=== PATIENT | female | born 1985 | race Caucasian/White ===

== ENCOUNTER 2025-05-02 20:20 | Emergency (ER) | payer OTHER, SELFPAY ==
--- OUTSIDE RECORDS SUMMARY | 2013-07-28 08:00 | XMS_ITS | Continuity of Care Document ---
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 Please verify the information with the lin of the legal document before using it for clinical purposes. Encounters Encounter Description Practice Location Reason(s) For Visit Diagnoses Date Provider Providers Copied on Encounter [facility], [address] [facility], [place], [address], [place] tel:[phone] [facility] [place] David Ricardo. [address] [place], [place], [id number], [place]. tel:[phone] Referring Provider: Davion Reagan, [address] [place], [address]. tel:[phone] Family History Family Member Type Diagnosis Age At Onset No Information Payers Payer name Insurance type Covered libertarian ID Authoriza tion(s) [employer] [id number] Social History Type Description Quantity Date Captured Comments Alcohol Use Details No Caffeine Use Details Tobacco Use Status No Information Smoking Status Never smoker Sex Female Chief Complaint And Reason For Visit No Information Reason For Referral Reason For Referral No Information History Of Present Illness Encounter Date Complaint History Of Prese nt Illness No Information Functional Status Date Functional Assessmen t No Information Instructions Date Instruction Additional Infor trevor - Return in [address] Hernandez for a routine exam. Related to Myopia Myopia OU - - Refrac tive error. Glasses prescription given today. Instructions and use reviewed. Educational materials provided: Related to Myopia Assessments Type Assessment Date No Information Patient Care Teams Name Effective Dates (start - stop) Status Members No Information
--- NOTE | ~2025-05-02 | CT_ITS ---
CT abdomen pelvis w con Clinical History: r/o pyelonephritis . Comparison: Pyelonephritis Technique: Axial images lung bases to symphysis pubis 100 mL Coronal, sagittal reformats CT images acquired with automatic exposure control for dose reduction DLP: 255 mGy-cm Findings: Lung bases: Clear. Visualized heart and pericardium: Unremarkable. Liver: Enlarged. Gallbladder: Unremarkable. Spleen: Unremarkable. Pancreas: Unremarkable. Adrenal glands: Unremarkable. Kidneys: Right kidney- No hydronephrosis. No renal stones. Tiny probable cyst. Left kidney- No hydronephrosis. 2 mm stone. Distal esophagus/stomach: Unremarkable. Small bowel loops: Normal caliber and wall thickness. Colon: Normal caliber and wall thickness. Appendix not seen. Nodes: No enlarged nodes. Peritoneum: No ascites. No free air. Urinary bladder: Unremarkable. Uterus: Unremarkable. Adnexa: No masses or. Bones: No acute bony abnormality. Soft tissues: Unremarkable. Aorta: No aneurysm or dissection. IVC: Unremarkable. Main portal vein/SMV/splenic vein: Patent. IMPRESSION: 1. No acute findings. Reviewed, dictated and finalized at location R. IMPRESSION: 1. No acute findings.
[2025-05-02 20:24] VITALS: BP 152/99; PULSE 84; RESP 20; TEMP 36.6; O2SAT 100
[2025-05-02 22:31] LABS: Hematocrit 34.8 % (37.0-47.0); Hemoglobin 11.2 g/dL (12.0-15.0); Immature Granulocyte Percent A 0.3 % (0-0.5); Lymphocytes Absolute Auto 2.55 K/mm3 (0.9-3.2); Mean Corpuscular HGB Conc 32.2 g/dl (32-36); Mean Corpuscular Hemoglobin 31.2 pg (26-34); Mean Corpuscular Volume 96.9 fl (80-100); Nucleated Red Blood Cells Absolute Auto 0.000 K/mm3 (0.0-0.012); Nucleated Red Blood Cells Perc 0.0 % (0.0-0.2); Platelet Count Result 310 k/mm3 (150-375); Red Blood Count 3.59 M/mm3 (4.2-5.4); White Blood Count 7.8 K/mm3 (4.5-10.0)
[2025-05-02 22:34] LABS: Add Urine Microscopic? NO; Appearance Urine Clear (Clear); Glucose Urine UA Negative (Negative); Leukocyte Esterase Ur Negative LEU/UL (Negative); Nitrate Urine Negative (Negative); Specific Grav Ur 1.032 (1.001-1.035)
[2025-05-02 22:50] LABS: Alanine Aminotransferase 18 U/L (6-35); Albumin Level 4.0 g/dL (3.5-5.1); Alkaline Phosphatase 51 U/L (38-126); Anion Gap 10 mmol/L (4-12); Aspartate Amino Transferase 21 U/L (14-36); Bilirubin,Total < 0.1 mg/dL (0.2-1.3); Blood Urea Nitrogen 14 mg/dL (7-17); Calcium 8.4 mg/dL (8.4-10.2); Carbon Dioxide 21 mmol/L (22-30); Chloride 107 mmol/L (98-107); Estimated CRCL calculation 85 ml/min; Estimated Glomerular Filt Rate > 60; Glucose 94 mg/dL (65-110); Lipase 225 U/L (23-300); Potassium 3.4 mmol/L (3.4-5.0); Sodium 138 mmol/L (137-145); Total Protein 6.5 g/dL (6.3-8.2)
--- NOTE | 2025-05-03 00:06 | PC.NURSE ---
ed [facility] a/p with con r/o pyelonephritis
--- NOTE | 2025-05-03 00:15 | PC.NURSE ---
alejandro in lab to add on test
[2025-05-03 00:24] LABS: Pregnancy On Board Control Positive
[2025-05-03 00:49] VITALS: PULSE 79; RESP 17; O2SAT 100
--- OUTSIDE RECORDS SUMMARY | 2025-05-03 00:59 | XMS_ITS | Encounter Summary ---
Author Organization [facility] Address [address] [place] [address] Phone Care Team Providers Care Drag Sawyer Name Role Phone Rona San APRN, CNP Primary Care Provider + Samuel Larry MD Primary Care Provider [phone] Encounter Details Date Type Department Care Team (Late st Contact Info) Description 11/20/2023 Telephone 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 Rona can be reached at [phone]. documented in this encounter Plan of Treatment Not on file documented as of this encounter Visit Diagnoses Not on filedocumented in this encounter Care Teams Drag Sawyer Relationship Specialty Start Date End Date Rona San, EXTRUDER, BASTING MARKER [address] [place] [address] PCP - General Certified Nurse Practitioner 08/28/22 06/02/24 Samuel Larry MD [address] [place] [address] PCP - General Internal Medicine 06/03/24 documented as of this encounter
--- OUTSIDE RECORDS SUMMARY | 2025-05-03 00:59 | XMS_ITS | Encounter Summary ---
Author Organization [facility] Address [address] [place] [address] Phone Care Team Providers Care Cytotechnologist/Histotechnologist Name Role Phone Samuel Larry MD Primary Care Provider Reason for Visit * Reason Comments Refill Request Encounter Details Date Type Department Care Team ([facility] Contact Info) Description 07/04/2024 Refill [facility] [address] [place] [address] Samuel Larry MD [address] [place] [address] Refill Request Social History Tobacco Use Types Packs/Day Years Used Date Smoking Tobacco: Never Smokeless Tobacco: Never Alcohol Use Standard Drinks/Week Comments Not Currently 0 (1 standard drink = 0.6 oz pur e alcohol) Comments No Sex and Gender Information Value Date Recorded Sex Assigned at Not on file Legal Sex Female 9:20 AM LASERIST Gender Identity Not on file Sexual Orientation Not on file documented as of this encounter Miscellaneous Notes * Telephone Encounter - Rody Jacobo RN - 07/07/2024 5:10 PM CST Patient last seen 05/27/2024. Patient next appt not scheduled at this time. Last filled 06-20-2024 for a 14 day supply. Was started on 05-30-24. Pain contract signed no. RIST * Telephone Encounter - Matilde Mendoza RN - 07/04/2024 12:10 PM CST REQUEST- Medication request for pending med(s) does not meet protocol. Reason: tramadol Medication is non-delegated Reason: cyclobenzaprine Not on medication for 91 days consecutively Routing to office for review. Please note: Per policy [facility] staff does not check for prescriptions/refills at pharmacy. All applicable manual reviews have been completed. Requested Prescriptions Pending Prescriptions Disp Refills traMADoL (ULTRAM) 50 mg tablet [Pharmacy Med Name: TRAMADOL HCL 50 MG TABLET] 56 tablet 0 Sig: TAKE 2 TABLETS BY MOUTH 2 TIMES DAILY FOR 14 DAYS Non-Delegated - Analgesics: Opioid Agonists Failed - 07/04/2024 12:10 PM Failed - This refill cannot be delegated cyclobenzaprine 5 mg tablet [Pharmacy Med Name: CYCLOBENZAPRINE 5 MG TABLET] 30 tablet 0 Sig: TAKE 1 TABLET BY MOUTH 3 TIMES DAILY NEEDED FOR MUSCLES SPASMS Analgesics: Muscle Relaxants Passed - 07/04/2024 12:10 PM Passed - Valid encounter within last 6 months Recent Visits Date Type Provider Dept 05/27/24 Office Visit Samuel Larry MD [facility] Internal Medicine [facility] Showing recent visits within past 730 days and meeting all other requirements Future Appointments No visits were found meeting these conditions. Showing future appointments within next 180 days and meeting all other requirements Associated protocol - MRC/A RIST * Telephone Encounter - User, Otogamifinch - 07/04/2024 10:56 AM CST No care due was identified. [employer] Embedded Care Due Messages. Reference number: [id number]. 07/04/2024 10:56:22 AM LASERIST RIST documented in this encounter Plan of Treatment Upcoming Encounters Date Type Department Care Team (Late st Contact Info) Description 05/06/2025 1:20 PM CDT Procedure Visit [facility] Interventional Pain [facility] [address] [place] [address] Graeme Masters DO [address] [place] [address] documented as of this encounter Visit Diagnoses Diagnosis Acute midline thoracic back pain documented in this encounter Additional Health Concerns Assessment Noted Time A Hypertension Plan of Care has been documented for the patient 05/27/2024 2:39 PM CDT documented as of this encounter Care Teams Cytotechnologist/Histotechnologist Relationship Specialty Start Date End Date Samuel Larry MD [address] [place] [address] PCP - General Adult Medicine 05/27/24 documented as of this encounter
--- OUTSIDE RECORDS SUMMARY | 2025-05-03 00:59 | XMS_ITS | Encounter Summary ---
Author Organization [facility] Address [address] [place] [address] Phone Care Team Providers Care Take Away Man Name Role Phone Samuel Larry MD Primary Care Provider [phone] Encounter Details Date Type Department Care Team ([facility] st Contact Info) Description 03/26/2025 Results Follow-Up [facility] [address] [place] [address] Samuel Larry MD [address] [place] [address] Social History Tobacco Use Types Packs/Day Years Used Date Smoking Tobacco: Never Smokeless Tobacco: Never Alcohol Use Standard Drinks/Week Comments Not Currently 0 (1 standard drink = 0.6 oz pur e alcohol) Comments No Sex and Gender Information Value Date Recorded Sex Assigned at Not on file 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 * Telephone Encounter - Shawanda Alcantar RN - 03/26/2025 4:22 PM CDT ----- Message from Samuel Larry MD sent at 03/26/2025 3:55 PM CDT ----- Looks like infection Start bactrim DS BID X 3 days Will f/u culture results ----- Message ----- From: [id number] Interface User Sent: 03/26/2025 1:53 PM CDT To: Samuel Larry MD documented in this encounter Plan of Treatment Upcoming Encounters Date Type Department Care Team (Late st Contact Info) Description 05/06/2025 1:20 PM CDT Procedure Visit [facility] [address] [place] [address] Graeme Masters DO [address] [place] [address] documented as of this encounter Visit Diagnoses Diagnosis UTI symptoms- Primary documented in this encounter Additional Health Concerns Assessment Noted Time A Hypertension Plan of Care has been documented for the patient 10/30/2024 1:39 PM CDT documented as of this encounter Care Teams Take Away Man Relationship Specialty Start Date End Date Samuel Larry MD [address] [place] [address] PCP - General Adult Medicine 05/27/24 documented as of this encounter
--- OUTSIDE RECORDS SUMMARY | 2025-05-03 00:59 | XMS_ITS | Encounter Summary ---
Author Organization [facility] Address [address] [place] [address] Phone Care Team Providers Care Drier Tender Naphthalene Name Role Phone Rona San APRN, CNP Primary Care Provider + Samuel Larry MD Primary Care Provider [phone] Encounter Details Date Type Department Care Team (Late st Contact Info) Description 09/05/2022 Telephone [facility] - Orthopaedics and Sports Medicine - [place] [address] [place] [address] Sara Faulkner PAC [address] [place] [address] Social History Tobacco Use Types Packs/Day Years Used Date Smoking Tobacco: Never Smokeless Tobacco: Never Alcohol Use Standard Drinks/Week Comments Never 0 (1 standard drink = 0.6 oz pur e alcohol) Comments Unknown Sex and Gender Information Value Date Recorded Sex Assigned at Female 11/08/2023 7:51 AM CDT Legal Sex 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 No / Unsure 08/28/2022 8:23 AM LINER MACHINE OPERATOR HELPER documented as of this encounter Miscellaneous Notes * Telephone Encounter - Zaida Maciel Salbador - 09/05/2022 10:08 AM CST Patient left a vm that she would like a call back from Sara. She saw her last week and has some questions about her upcoming procedure. Her number is [phone]. TC returned to pt, she stated that she really wanted to talk with Sara BAUMAN about surgery. Pt stated she wanted to know how long she would be off work and if she would be in a cast after surgery. Informed her I would send message to Sara BAUMAN and then return call. Pt stated that she would like Sara to return call. Informed her that Sara BAUMAN is busy in surgery but I would send a message. Pt voiced understanding. Lb rn R MACHINE OPERATOR HELPER R MACHINE OPERATOR HELPER documented in this encounter Plan of Treatment Not on file documented as of this encounter Visit Diagnoses Not on filedocumented in this encounter Care Teams Drier Tender Naphthalene Relationship Specialty Start Date End Date Rona San, BENY, RELIGION DEPARTMENT CHAIR [address] [place] [address] PCP - General Certified Nurse Practitioner 08/28/22 06/02/24 Samuel Larry MD [address] [place] [address] PCP - General Internal Medicine 06/03/24 documented as of this encounter
--- OUTSIDE RECORDS SUMMARY | 2025-05-03 00:59 | XMS_ITS | Encounter Summary ---
Author Organization [facility] Address [address] [place] [address] Phone Care Team Providers Care Underground Electrician Name Role Phone Samuel Larry MD Primary Care Provider [phone] Reason for Visit * Reason Onset Date Comments Refill Request 08/18/2024 Encounter Details Date Type Department Care Team (Late st Contact Info) Description 08/18/2024 Refill [facility] Adult [facility] [address] [place] [address] Samuel Larry MD [address] [place] [address] Refill Request Social History Tobacco Use Types Packs/Day Years Used Date Smoking Tobacco: Never Smokeless Tobacco: Never Alcohol Use Standard Drinks/Week Comments Not Currently 0 (1 standard drink = 0.6 oz pur e alcohol) Comments No Sex and Gender Information Value Date Recorded Sex Assigned at Not on file Legal 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 Larry approval R PRINTER OPERATOR * Telephone Encounter - Debbie Wade RN - 08/19/2024 1:18 PM COLOR PRINTER OPERATOR REQUEST- Medication request for pending med(s) does not meet protocol. Reason: Medication is non-delegated ultram-no rx noted on pdmp Routing to office for review. Please note: Per policy [facility] staff does not check for prescriptions/refills at pharmacy. All applicable manual reviews have been completed. Requested Prescriptions Pending Prescriptions Disp Refills traMADoL (ULTRAM) 50 mg tablet 28 tablet 0 Sig: Take 1-2 tablets (50-100 mg total) by mouth 2 (two) times daily as needed for pain Non-Delegated - Analgesics: Opioid Agonists Failed - 08/19/2024 1:18 PM Failed - This refill cannot be delegated cyclobenzaprine 5 mg tablet 30 tablet 0 Sig: Take 1 tablet (5 mg total) by mouth 3 (three) times daily as needed (muscle spasm) Analgesics: Muscle Relaxants Passed - 08/19/2024 1:18 PM Passed - Valid encounter within last 6 months Recent Visits Date Type Provider Dept 05/27/24 Office Visit Samuel Larry MD [facility] Internal Medicine [facility] Showing recent visits within past 730 days and meeting all other requirements Future Appointments No visits were found meeting these conditions. Showing future appointments within next 180 days and meeting all other requirements Associated protocol - MRC/A R PRINTER OPERATOR * Telephone Encounter - Roseann LiquidCompassankit - 08/18/2024 7:43 AM CST No care due was identified. [employer] Embedded Care Due Messages. Reference number: [id number]. 08/18/2024 7:43:07 AM COLOR PRINTER OPERATOR R PRINTER OPERATOR documented in this encounter Plan of Treatment Upcoming Encounters Date Type Department Care Team (Late st Contact Info) Description 05/06/2025 1:20 PM CDT Procedure Visit [facility] Interventional Pain [facility] [address] [place] [address] Graeme Masters DO [address] [place] [address] documented as of this encounter Visit Diagnoses Diagnosis Degeneration of intervertebral disc of lumbar region with discogenic back pain Acute midline thoracic back pain documented in this encounter Additional Health Concerns Assessment Noted Time A Hypertension Plan of Care has been documented for the patient 05/27/2024 2:39 PM CDT documented as of this encounter Care Teams Underground Electrician Relationship Specialty Start Date End Date Samuel Larry MD [address] [place] [address] PCP - General Adult Medicine 05/27/24 documented as of this encounter
--- OUTSIDE RECORDS SUMMARY | 2025-05-03 00:59 | XMS_ITS | Encounter Summary ---
Author Organization [facility] Address [address] [place] [address] Phone Care Team Providers Care Propellant Charge Loader Name Role Phone Samuel Larry MD Primary Care Provider [phone] Encounter Details Date Type Department Care Team (Late Contact Info) Description 03/28/2022 Orders Only [facility] [address] [place] [phone] [facility] [address] [place] [phone] Routine general medical examination at a health care facility; Hypothyroidism, unspecified type; Family history of diabetes mellitus; Other fatigue Social History Tobacco Use Types Packs/Day Years Used Date Smoking Tobacco: Never Smokeless Tobacco: Never Alcohol Use Standard Drinks/Week Comments Not Currently 0 (1 standard drink = 0.6 oz pur e alcohol) Comments No Sex and Gender Information Value Date Recorded Sex Assigned at Not on file Legal Sex Female 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 Gender Identity Not on file Sexual Orientation Not on file documented as of this encounter Plan of Treatment Upcoming Encounters Date Type Department Care Team (Late Contact Info) Description 05/06/2025 1:20 PM CDT Procedure Visit [facility] [address] [place] [address] Graeme Masters, DO [address] [place] [address] documented as of this encounter Procedures Procedure Name Priority Date/Time Associated Diagnosis Comments GLYCO HB A1C Routine 03/28/2022 12:55 AM CDT Routine general medical examination at a health care facility Hypothyroidism, unspecified type Family history of diabetes mellitus Other fatigue VITAMIN D, 25-HYDROXY Routine 03/28/2022 12:55 AM CDT CBC W/DIFF Routine 03/28/2022 12:55 AM CDT Routine general medical examination at a health care facility Hypothyroidism, unspecified type Family history of diabetes mellitus Other fatigue LIPID PANEL Routine 03/28/2022 12:55 AM CDT Routine general medical examination at a health care facility Hypothyroidism, unspecified type Family history of diabetes mellitus Other fatigue COMPREHENSIVE METABOLIC PANEL Routine 03/28/2022 12:55 AM CDT Routine general medical examination at a health care facility Hypothyroidism, unspecified type Family history of diabetes mellitus Other fatigue T4, FREE Routine 03/28/2022 12:55 AM CDT Routine general medical examination at a health care facility Hypothyroidism, unspecified type Family history of diabetes mellitus Other fatigue T3, TOTAL Routine 03/28/2022 12:55 AM CDT TSH Routine 03/28/2022 12:55 AM CDT Routine general medical examination at a health care facility Hypothyroidism, unspecified type Family history of diabetes mellitus Other fatigue VITAMIN B12 Routine 03/28/2022 12:55 AM CDT Routine general medical examination at a health care facility Hypothyroidism, unspecified type Family history of diabetes mellitus Other fatigue documented in this encounter Results * T3, TOTAL (03/28/2022 12:55 AM CDT) Pathologist [facility] T3, TOTAL 112.8 35.0 - 193.0 ng/dL [facility] Comment:[facility] Laboratory, [address] [place] [address] 03/28/2022 12:5 5 AM CDT 03/28/2022 8:10 PM CDT Rona San APRN HEM/CHEM/IMMUN-BLOOD Final Re sult Performing Organization Address [facility]/ZIP Co de Phone Number [facility] [address] [place] [address], * VITAMIN D, 25-HYDROXY (03/28/2022 12:55 AM CDT) [facility] VITAMIN D, 25-HYDROXY, TOTAL 68.7 30.0 - 100.0 ng/mL [facility] Comment:[facility], [address] [place] [address] 03/28/2022 12:5 5 AM CDT 03/28/2022 8:10 PM CDT Rona San APRN HEM/CHEM/IMMUN-BLOOD Final Re sult Performing Organization Address City/[facility]/ZIP Co de Phone Number [facility] [address] [place] [address], [place] * CBC W/DIFF (03/28/2022 12:55 AM CDT) [facility] WBC 9.01 4.00 - 11.00 10^3/uL [facility] RBC 4.62 3.50 - 5.20 10^6/uL [facility] HGB 13.8 11.0 - 16.0 g/dL [facility] HCT 41.4 34.0 - 47.0 % [facility] MCV 89.6 80.0 - 100.0 fL [facility] MCH 29.9 26.0 - 33.0 pg [facility] MCHC 33.3 31.0 - 35.0 g/dL [facility] RDW 13.1 12.0 - 15.0 % [facility] RDW-SD 43.1 38.0 - 52.0 fL [facility] PLATELET 350 140 - 400 10^3/uL [facility] MPV 10.2 9.0 - 12.0 fL [facility] # NRBC 0.00 0.00 - 0.00 10^3/uL [facility] % NRBC 0.00 0.0 - 0.0 /100 WBC [facility] SEG 59.6 % [facility] LYMPHOCYTE 30.5 % [facility] MONOCYTE 7.7 % [facility] EOSINOPHIL 1.1 % [facility] BASOPHIL 0.2 % [facility] IMMATURE GRANULOCYTE 0.9 % [facility] ABSOLUTE NEUTR 5.37 1.60 - 7.70 10^3/uL [facility] ABSOLUTE LYMPH 2.75 1.00 - 4.90 10^3/uL [facility] ABSOLUTE MONO 0.69 0.00 - 1.10 10^3/uL [facility] ABSOLUTE EOS 0.10 0.00 - 0.50 10^3/uL [facility] ABSOLUTE BASO 0.02 0.00 - 0.20 10^3/uL [facility] ABSOLUTE IMMATURE GRANULOCYTE 0.08 0.00 - 0.09 10^3/uL [facility] 03/28/2022 12:5 5 AM CDT 03/28/2022 12:55 AM CDT us Rona San APRN HEM/CHEM/IMMUN-BLOOD Final Re sult [facility] [address] [place] [address], * COMPREHENSIVE METABOLIC PANEL (03/28/2022 12:55 AM CDT) CALCIUM 9.8 8.2 - 10.2 mg/dL [facility] GLUCOSE 95 70 - 100 mg/dL [facility] BUN 15 7 - 20 mg/dL [facility] CREATININE 0.80 0.60 - 1.40 mg/dL [facility] TOTAL PROTEIN 8.2 6.4 - 8.2 g/dL [facility] ALBUMIN 4.2 3.4 - 5.0 g/dL [facility] BILIRUBIN, TOTAL 0.2 0.1 - 1.0 mg/dL [facility] AST 33 0 - 37 U/L [facility] ALT 39 16 - 61 U/L [facility] ALKALINE PHOSPHATASE 64 46 - 116 U/L [facility] SODIUM 137 135 - 148 mmol/L [facility] POTASSIUM 4.2 3.5 - 5.3 mmol/L [facility] CHLORIDE 101 95 - 108 mmol/L [facility] CO2 29.0 22.0 - 32.0 mmol/L [facility] GFR:NON- >60 arbitrary unit [facility] GFR: >60 arbitrary unit [facility] Comment: GFR is an estimate using the MDRD equation. The eGFR is intended only for assessment of chronic kidney disease in patients between ages of 18 and 69. The normal value is >60. 03/28/2022 12:5 5 AM CDT 03/28/2022 12:55 AM CDT Rona San APRN HEM/CHEM/IMMUN-BLOOD Final Re sult [facility] [address] [place] [address], * (ABNORMAL) LIPID PANEL (03/28/2022 12:55 AM CDT) CHOLESTEROL, TOTAL 221(H) 100 - 200 mg/dL [facility] TRIGLYCERIDES 362(H) 15 - 200 mg/dL [facility] HDL CHOLESTEROL 70 45 - 75 mg/dL [facility] LDL CHOLESTEROL 79 78 - 130 mg/dL [facility] 03/28/2022 12:5 5 AM CDT 03/28/2022 12:55 AM CDT Rona San APRN HEM/CHEM/IMMUN-BLOOD Final Re sult Performing Organization Address [facility] Co de Phone Number [facility] [address] [place] [address], * TSH (03/28/2022 12:55 AM CDT) Pathologist [facility] TSH 1.740 0.360 - 3.740 uIU/mL [facility] Comment: Specimens containing biotin at concentrations of 500 ng/ml demonstrate a less than or equal to 10% change in results. Biotin concentrations greater than this may lead to falsely elevated results for patient samples. Results from patients taking biotin supplements should be interpreted with caution. 03/28/2022 12:5 5 AM CDT 03/28/2022 12:55 AM CDT Rona San APRN HEM/CHEM/IMMUN-BLOOD Final Re sult Performing Organization Address [facility] Co de Phone Number [facility] [address] [place] [address], * T4, FREE (03/28/2022 12:55 AM CDT) [facility] T4, FREE 0.79 0.76 - 1.46 ng/dL [facility] Comment: Specimens containing biotin at concentrations of 500 ng/ml demonstrate a less than or equal to 10% change in results. Biotin concentrations greater than this may lead to falsely elevated results for patient samples. Results from patients taking biotin supplements should be interpreted with caution. 03/28/2022 12:5 5 AM CDT 03/28/2022 12:55 AM CDT Rona San APRN HEM/CHEM/IMMUN-BLOOD Final Re sult Performing Organization Address [facility] Co de Phone Number [facility] [address] [place] [address], [place] * GLYCO HB A1C (03/28/2022 12:55 AM CDT) [facility] GLYCO HB A1C 4.8 0.0 - 6.0 % [facility] ESTIMATED AVERAGE GLUCOSE 91 [facility] Comment: The relationship between A1c and eAG is described by the formula (28.7 x A1c)-46.7 = eAG. Recommended eAG: <150 mg/dL 03/28/2022 12:5 5 AM CDT 03/28/2022 12:55 AM CDT Rona San APRN HEM/CHEM/IMMUN-BLOOD Final Re sult Performing Organization Address [facility] de Phone Number [facility] [address] [place] [address], * VITAMIN B12 (03/28/2022 12:55 AM CDT) VITAMIN B12 345 200 - 1100 pg/mL [facility] Comment: Specimens containing biotin at concentrations of 500 ng/ml demonstrate a less than or equal to 10% change in results. Biotin concentrations greater than this may lead to falsely elevated results for patient samples. Results from patients taking biotin supplements should be interpreted with caution. 03/28/2022 12:5 5 AM CDT 03/28/2022 12:55 AM CDT oRna San APRN HEM/CHEM/IMMUN-BLOOD Final Re sult Performing Organization Address [facility] Phone Number [facility] [address] [place] [address], documented in this encounter Visit Diagnoses Diagnosis Routine general medical examination at a health care facility Hypothyroidism, unspecified type Family history of diabetes mellitus Other fatigue documented in this encounter Additional Health Concerns Infection Onset Date Last Indicated Resolved Time Suspected COVID-19 09/01/2023 09/01/2023 6:17 AM SUPERVISOR URANIUM PROCESSING Influenza 09/01/2023 09/01/2023 09/08/2023 10:0 3 PM SUPERVISOR URANIUM PROCESSING documented as of this encounter Care Teams Propellant Charge Loader Relationship Specialty Start Date End Date Samuel Larry MD [address] [place] [address] PCP - General Adult Medicine 05/27/24 documented as of this encounter
--- OUTSIDE RECORDS SUMMARY | 2025-05-03 00:59 | XMS_ITS | Encounter Summary ---
Author Organization [facility] Address [address] [place] [address] Phone Care Team Providers Care Acid Retort Operator Name Role Phone Samuel Larry MD Primary Care Provider [phone] Reason for Visit * Reason Onset Date Comments Refill Request 06/05/2024 Encounter Details Date Type Department Care Team (Late st Contact Info) Description 06/05/2024 Refill [facility] [place] [address] [place] [address] Samuel Larry MD [address] [place] [address] Refill Request Social History Tobacco Use Types Packs/Day Years Used Date Smoking Tobacco: Never Smokeless Tobacco: Never Alcohol Use Standard Drinks/Week Comments Not Currently 0 (1 standard drink = 0.6 oz pur e alcohol) Comments No Sex and Gender Information Value Date Recorded Sex Assigned at Not on file 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 Patient next appt not scheduled at this time. Last filled 05-30-2024 for a 7 day supply. Patient Comment: I went to the ER yesterday and they said they could not help me that I had to do outpatient with my doctor. Dr. Masters???s office does not offer medication Maintenance I???ve done nothing but lay and cry. I want to know what I???m supposed to do until I get these other injections. This isn???t fair * Telephone Encounter - Abby Cardenas CMA - 06/05/2024 10:07 AM CDT Images from the original note were not included. REQUEST- Medication request for pending med(s) does not meet protocol. Reason: Medication is non-delegated Routing to office for review. Please note: Per policy [facility] staff does not check for prescriptions/refills at pharmacy. All applicable manual reviews have been completed. Requested Prescriptions Pending Prescriptions Disp Refills traMADoL (ULTRAM) 50 mg tablet 14 tablet 0 Sig: Take 1 tablet (50 mg total) by mouth 2 (two) times daily for 7 days Non-Delegated - Analgesics: Opioid Agonists Failed - 06/05/2024 10:07 AM Failed - This refill cannot be delegated Associated protocol - [facility]/A * Telephone Encounter - Drea Whitfield - 06/05/2024 7:54 AM CDT No care due was identified. [facility] Embedded Care Due Messages. Reference number: [id number]. 06/05/2024 7:54:53 AM CDT documented in this encounter Plan of Treatment Upcoming Encounters Date Type Department Care Team (Late st Contact Info) Description 05/06/2025 1:20 PM CDT Procedure Visit [facility] [address] [place] [address] Graeme Masters, [address] [place] [address] documented as of this encounter Visit Diagnoses Diagnosis Acute midline thoracic back pain documented in this encounter Additional Health Concerns Assessment Noted Time A Hypertension Plan of Care has been documented for the patient 05/27/2024 2:39 PM CDT documented as of this encounter Care Teams Acid Retort Operator Relationship Specialty Start Date End Date Samuel Larry MD [address] [place] [address] PCP - General Adult Medicine 05/27/24 documented as of this encounter
--- OUTSIDE RECORDS SUMMARY | 2025-05-03 00:59 | XMS_ITS | Encounter Summary ---
Author Organization [facility] Address [address] [place] [address] Care Team Providers Care Telescope Operator Name Role Phone Rona San NP Primary Care Provider [phone] Reason for Visit * Inpt Precert (Routine) Specialty Diagnoses / Procedures Referred By Baldomero t Referred To Contact Referral ID Status Reason Start Date Expiration Date Visits Re quested Visits Authorized [id number] 1 1 Encounter Details Date Type Department Care Team (Late st Contact Info) Description 02/01/2023 Hospital Encounter [facility] [address] [place] [address] David Lala MD [address] [facility] [address] [place] [address] Social History Tobacco Use Types Packs/Day Years Used Date Smoking Tobacco: Never Smokeless Tobacco: Never Alcohol Use Standard Drinks/Week Comments No 0 (1 standard drink = 0.6 oz pur e alcohol) PHQ-2 Answer Date Recorded PHQ-2 Score 0 03/01/2023 Housing Stability Vital Sign Answer Yury e Recorded In the last 12 months, was t here a time when you were not able to pay the mortgage or rent on time? No 03/01/2023 In the last 12 months, how many places have you lived? 1 03/01/2023 In the last 12 months, was t here a time when you did not have a steady place to sleep or slept in a prison (including now)? No 03/01/2023 Alcohol Use Answer Date Recorded Frequency of Alcohol Consumption Not on file 01/29/2024 Average Number of Drinks Not on file 024 Frequency of Binge Drinking Not on file 01/18 Alcohol Use Status No 01/29/2024 Average alcohol consumption Not on file 01/18 Comments No Sex and Gender Information Value Date Recorded Sex Assigned at Female 02/01/2023 2:59 PM CDT Legal Sex Female 11:26 PM CDT Gender Identity Female 02/01/2023 2:59 PM CDT Sexual Orientation Straight 02/01/2023 2: 59 PM CDT COVID-19 Exposure Response Date Recorded In the last 10 days, have yo u been in contact with someone who was confirmed or suspected to have Coronavirus/COVID-19? No / Unsure 03/31/2023 10:31 AM CDT documented as of this encounter Functional Status * Are you deaf or do you have serious difficulty hearing? Answer Date of Assessment Author No 02/22/2023 1:43 PM CDT Ilya Reza RN * Are you blind or do you have serious difficulty seeing, even when wearing glasses? Answer Date of Assessment Author No 02/22/2023 1:43 PM CDT Ilya Reza RN * Do you have difficulty dressing or bathing? Answer Date of Assessment Author No 02/22/2023 1:43 PM DEEPAT Ilya Reza RN * Because of a physical, mental, or emotional condition, do you have difficulty doing errands alone such as visiting a doctor's office or shopping? Answer Date of Assessment Author No 02/22/2023 1:43 PM CDT Ilya Reza RN documented as of this encounter Mental Status * Because of a physical, mental, or emotional condition, do you have serious difficulty concentrating, remembering, or making decisions? Answer Entry Date Author No 02/22/2023 1:43 PM DEEPAT Ilya Reza RN documented in this encounter Plan of Treatment Not on file documented as of this encounter Goals Goal Patient Goal Type Associated Problems Recent Progress Patient-Stated? Author Reminders Care Plan OB Reminders No Mychartbguser documented as of this encounter Visit Diagnoses Not on filedocumented in this encounter Additional Health Concerns Active Problems Noted Date Diagnosed Date OB Reminders 02/02/2023 documented as of this encounter Care Teams Telescope Operator Relationship Specialty Start Date End Date Rona San NP [address] [place] [address] PCP - General Nurse Practitioner 09/05/22 01/14/25 documented as of this encounter
--- OUTSIDE RECORDS SUMMARY | 2025-05-03 00:59 | XMS_ITS | Encounter Summary ---
Author Organization [facility] Address [address] [place] [address] Phone Care Team Providers Care Scrap Metal Processing Worker Name Role Phone Samuel Larry MD Primary Care Provider [phone] Reason for Visit * Reason Onset Date Comments Refill Request 05/29/2024 Encounter Details Date Type Department Care Team (Late st Contact Info) Description 05/29/2024 Refill [facility] [address] [place] [address] Samuel Larry MD [address] [place] [address] Refill Request Social History Tobacco Use Types Packs/Day Years Used Date Smoking Tobacco: Never Smokeless Tobacco: Never Alcohol Use Standard Drinks/Week Comments Not Currently 0 (1 standard drink = 0.6 oz pur e alcohol) Comments No Sex and Gender Information Value Date Recorded Sex Assigned at Not on file 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 [employer] Embedded Care Due Messages. Reference number: [id number]. 05/29/2024 5:09:17 PM CDT documented in this encounter Plan of Treatment Upcoming Encounters Date Type Department Care Team (Late st Contact Info) Description 05/06/2025 1:20 PM CDT Procedure Visit [facility] Interventional [facility] [address] [place] [address] Graeme Masters DO [address] [place] [address] documented as of this encounter Visit Diagnoses Diagnosis Acute midline thoracic back pain- Primary documented in this encounter Additional Health Concerns Assessment Noted Time A Hypertension Plan of Care has been documented for the patient 05/27/2024 2:39 PM CDT documented as of this encounter Care Teams Scrap Metal Processing Worker Relationship Specialty Start Date End Date Samuel Larry MD [address] [place] [address] PCP - General Adult Medicine 05/27/24 documented as of this encounter
--- OUTSIDE RECORDS SUMMARY | 2025-05-03 00:59 | XMS_ITS | Clinical Summary ---
Author Organization [address] Address [address] [place] [address] [facility] [place] [address] Phone Care Team Providers Care Logistics Planning Manager Name Role Phone Samuel Larry MD Primary Care Provider [phone] Allergies No known active allergies Medications ALPRAZolam (XANAX) 0.5 MG Tablet Take by mouth nightly as needed. 2 Active omeprazole (PriLOSEC) 40 MG CAPSULE DELAYED RELEASE Take 20 mg by mouth as needed. 1 Active dicyclomine (BENTYL) 20 MG Tablet Take 10 mg by mouth as needed. 2 Active acetaminophen (Tylenol 8 Hour) 650 MG Tablet Controlled Release Take 1 Tablet by mouth every 6 hours as needed for Moderate or more severe pain. 40 Tablet 4 Active SUMAtriptan (IMITREX) 50 MG Tablet TAKE 1 TABLET BY MOUTH AT ONSET OF MIGRAINE, MAY REPEAT IN 2 HOURS IF NEEDED Active Rizatriptan Benzoate 10 MG Tablet TAKE 1 TABLET BY MOUTH EVERY DAY NEEDED Active ondansetron (ZOFRAN-ODT) 4 MG TABLET DISPERSIBLE DISSOLVE 2 TABLETS UNDER THE TONGUE TWICE A DAY NEEDED Active Balziva 0.4-35 MG-MCG Tablet Take 1 Tablet by mouth daily. Active ARIPiprazole (ABILIFY) 5 MG Tablet TAKE 1 TABLET BY MOUTH EVERY DAY DIRECTED 4 Active levothyroxine (SYNTHROID) 125 MCG Tablet Take 125 mcg by mouth daily. Active traMADol (ULTRAM) 50 MG Tablet Take 1 Tablet by mouth every 6 hours as needed. 2 Active meloxicam (MOBIC) 15 MG Tablet TAKE 1 TABLET BY MOUTH EVERY DAY 30 Tablet 4 Active Active Problems Problem Noted Date Diagnosed Date S/P hardware removal 11/08/2023 IBS (irritable bowel syndrome) 10/31/2023 GERD (gastroesophageal reflux disease) 4 Iron deficiency anemia 02/05/2023 4 Left ankle pain 10/25/2022 Acquired hypothyroidism 11/14/2019 10/31/19 24 Degenerative disc disease, lumbar 03/30/2016 10/31/2023 Anxiety and depression 06/22/2014 4 Overview (10/31/2023): Identified By: Yadira Chan Assessment & Plan: Assessment: She clearly has a lot on her plate currently. But currently needing refills of medications until she can be seen at the psychiatry office. Currently on Effexor XR 37.5 mg daily. Feels like is not doing anything. Multiple trials of medications reviewed. Plan: My plan is to have this patient increase Effexor to the extended release 75 mg daily. Stop amitriptyline. She will be seen at the [facility] tomorrow for an intake but unclear when they will actually start prescribing medications so refills may need be done until she is seen. Increasing Effexor to 150 or 225 will likely be needed for her to see a benefit of the medication. She certainly has some physical symptoms of anxiety with racing heart and sweating and palpitations which may be amenable to propranolol so this was prescribed. She also discussed as needed use of alprazolam in the past and she would like to have that now which she has used sparingly in the past. Identified By: Yadira Chan Assessment & Plan: Assessment: She clearly has a lot on her plate currently. But currently needing refills of medications until she can be seen at the psychiatry office. Currently on Effexor XR 37.5 mg daily. Feels like is not doing anything. Multiple trials of medications reviewed. Plan: My plan is to have this patient increase Effexor to the extended release 75 mg daily. Stop amitriptyline. She will be seen at the [facility] tomorrow for an intake but unclear when they will actually start prescribing medications so refills may need be done until she is seen. Increasing Effexor to 150 or 225 will likely be needed for her to see a benefit of the medication. She certainly has some physical symptoms of anxiety with racing heart and sweating and palpitations which may be amenable to propranolol so this was prescribed. She also discussed as needed use of alprazolam in the past and she would like to have that now which she has used sparingly in the past. 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 Gender Identity Female 11/08/2023 7:51 AM CDT Sexual Orientation Not on file Last Filed Vital Signs Vital Sign Reading Time Taken Comments Blood Pressure 130/95 06/03/2024 5:30 PM CDT Pulse 86 06/03/2024 5:30 PM CDT Temperature 36.5 C (97.7 F) 06/03/2024 4:13 PM CDT Respiratory Rate 16 06/03/2024 5:30 PM CDT Oxygen Saturation 100% 06/03/2024 5:30 PM CDT Inhaled Oxygen Concentration - - Weight 57.6 kg (127 lb) 06/03/2024 4:13 PM CDT Height 172.7 cm (5' 8) 06/03/2024 4:13 PM CDT Body Mass Index 19.31 06/03/2024 4:13 PM CDT Plan of Treatment Health Maintenance Due Date Last Done Comments Hepatitis B Immunization (1 of 3 - 19+ 3-dose series) 2004 01/19/2015, 09/07/2014, 06/04/2014, Additional history exists Pap Smear 2006 Human Papillomavirus (HPV) Immunization (1 - 3-dose SCDM series) 2012 Cervical Cancer Screening (CCS) 12/12/2015 HPV/Cotest 12/12/2015 Influenza Immunization (#1) 2025 10/0 03/2024, 05/30/2023, 07/26/2022, Additional history exists SARS-COV-2 Immunization ( - 2024- season) 2025 06/21/2021, 01/10/2021 Respiratory Syncytial Virus (RSV) Immunization (Adult) (1 - 1-dose 75+ series) 2060 Hepatitis C Virus (HCV) Screening Completed 07/14/2020, 07/14/2020, 01/27/2020 DTaP/Tdap/Td Immunization Discontinued 2022, 06/20/2013, 11/28/1990, Additional history exists TdaP Immunization Completed 02/02/2023, 06/20/2013 Meningococcal Immunization (ACWY) Aged Out No longer eligible based on patient's age to complete this topic Pneumococcal Immunization Combined Aged Out No longer eligible based on patient's age to complete this topic Rotavirus Immunization Aged Out No lo nger eligible based on patient's age to complete this topic Insurance MEDICAID AETNA [facility] Advance Directives Documents on File Type Date Recorded Patient Quality Control Director Expl anation Other Advance Directive 11/23/2023 11:46 AM Ortho- Fax Cover She et - [facility] Rehab PT Order 11/23/23 Care Teams Logistics Planning Manager Relationship Specialty Start Date End Date Samuel Larry MD [address] [place] [address] PCP - General Internal Medicine 06/03/24
--- OUTSIDE RECORDS SUMMARY | 2025-05-03 00:59 | XMS_ITS | Patient Health Record ---
Author Organization [facility] Address [address] [place], [place] [address] Care Team Providers Care Farmer And Grazier Name Role Phone Yadira Gardner MD Primary Care Provider Lucero TORRES MD, ESTER Unavailable [phone] Reason For Referral No Information Medications Medication SIG (Take, Route, Frequency, Duration) Notes Start Date End Date Status Omeprazole 40 MG 1 capsule Orally Onc e a day; Duration: 30 day(s) Active Multivitamin - 1 tablet Orally Once a day Active Tri-Sprintec 0.18/0.215/0.25 MG-35 MCG 1 tablet Orally Once a day; Duration: 28 day(s) Active ALPRAZolam 0.5 MG 1 tablet Orally Once a day Active Zofran 4 MG 1 tablet Orally Twic e a day; Duration: 15 days Active Sulindac 150 MG 1 tablet with food Orally Twice a day; Duration: 30 day(s) Active Cyclobenzaprine HCl 10 MG 1 tablet as ne eded Orally Three times a day Active Dicyclomine HCl 20 MG 1/2 tablet Orally Twice a day; Duration: 30 day(s) Active Levothyroxine Sodium 75 MCG 1 tablet on an empty stomach in the morning Orally Once a day; Duration: 30 day(s) Active Social History Tobacco Use: Social History Observation Description Date Details (start date - stop date) Never Smoker NA - NA Tobacco Use/Smoking Question Answer Notes Patient is a nonsmoker Alcohol Screen (Audit-C) Question Answer Notes Did you have a drink containing alcohol in the p ast year? No Points 0 Interpretation Negative Tobacco use other than smoking: Question Answer Notes Are you an other tobacco user? No Problems Problem Type SNOMED Code ICD Code Onset Dates Problem Status W/U Status Risk Notes Problem Displaced obliqu e fracture of shaft of left tibia, subsequent encounter for closed fracture with routine healing (S82.232D) Active confirmed Problem Depression (665398568) Depression (F32.9) Active confirmed Problem Gastroesophageal reflux disease (155192236) Gastroesophageal reflux disease (K21.9) Active confirmed Plan Of Treatment No Information Insurance Providers Payer Name Payer Address Payer Phone Subscriber Number Group Number Insured Name Patient Relationship to Insured Coverage Start Date Coverage End Date [facility] [address] [address] [place] [phone] [id number] Thu Ba Self - patient is the insured Medical (General) History Medical History History ICD Code Depression F32.9 Gastroesophageal reflux disease K21.9 Thyroid Disorder* Surgical History Surgery Date(Month/Year) open reduction, internal fixation (ORIF) Left ankle; Dr. Torres Colon mouth surgery Breast enhancement surgery Hospitalization History Reason Date(Month/Year) childbirth
--- OUTSIDE RECORDS SUMMARY | 2025-05-03 00:59 | XMS_ITS | Encounter Summary ---
Author Organization [facility] Address [address] [place] [address] Phone Care Team Providers Care Baler Name Role Phone Samuel Larry MD Primary Care Provider [phone] Encounter Details Date Type Department Care Team (Late st Contact Info) Description 09/12/2024 Scanned Document [facility] [address] [place] [address] Graeme Masters DO [address] [place] [address] Social History Tobacco Use Types Packs/Day Years Used Date Smoking Tobacco: Never Smokeless Tobacco: Never Alcohol Use Standard Drinks/Week Comments Not Currently 0 (1 standard drink = 0.6 oz pur e alcohol) Comments No Sex and Gender Information Value Date Recorded Sex Assigned at Not on file Legal Sex Female 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 Gender Identity Not on file Sexual Orientation Not on file documented as of this encounter Plan of Treatment Upcoming Encounters Date Type Department Care Team (Late Contact Info) Description 05/06/2025 1:20 PM CDT Procedure Visit [facility] [address] [place] [address] Graeme Masters, DO [address] [place] [address] documented as of this encounter Visit Diagnoses Not on filedocumented in this encounter Additional Health Concerns Assessment Noted Time A Hypertension Plan of Care has been documented for the patient 05/27/2024 2:39 PM CDT documented as of this encounter Care Teams Baler Relationship Specialty Start Date End Date Samuel Lrary MD [address] [place] [address] PCP - General Adult Medicine 05/27/24 documented as of this encounter
--- OUTSIDE RECORDS SUMMARY | 2025-05-03 00:59 | XMS_ITS | Encounter Summary ---
Author Organization [employer] [facility] Address [address] [place] [address] Phone Care Team Providers Care Statue Carver Name Role Phone Samuel Larry MD Primary Care Provider [phone] Encounter Details Date Type Department Care Team (Late st Contact Info) Description 08/06/2024 Telephone [facility] [address] [place] [address] Samuel Larry MD [address] [place] [address] Social History Tobacco Use Types Packs/Day Years Used Date Smoking Tobacco: Never Smokeless Tobacco: Never Alcohol Use Standard Drinks/Week Comments Not Currently 0 (1 standard drink = 0.6 oz pur e alcohol) Comments No Sex and Gender Information Value Date Recorded Sex Assigned at Not on file Legal Sex Female 9:20 AM YARD SUPERVISOR COTTON GIN Gender Identity Not on file Sexual Orientation Not on file documented as of this encounter Miscellaneous Notes * Telephone Encounter - Jewell Auguste - 08/06/2024 4:29 PM CST Pt returned call. Asked for call back when available. SUPERVISOR COTTON GIN * Telephone Encounter - Jose Manuel New CMA - 08/06/2024 3:34 PM YARD SUPERVISOR COTTON GIN Attempted to reach patient to do MRI screening[facility] [address] SUPERVISOR COTTON GIN documented in this encounter Plan of Treatment Upcoming Encounters Date Type Department Care Team (Late st Contact Info) Description 05/06/2025 1:20 PM CDT [facility] [address] [place] [address] Graeme Masters, DO [address] [place] [address] documented as of this encounter Visit Diagnoses Not on filedocumented in this encounter Additional Health Concerns Assessment Noted Time A Hypertension Plan of Care has been documented for the patient 05/27/2024 2:39 PM CDT documented as of this encounter Care Teams Statue Carver Relationship Specialty Start Date End Date Samuel Larry MD [address] [place] [address] PCP - General Adult Medicine 05/27/24 documented as of this encounter
--- OUTSIDE RECORDS SUMMARY | 2025-05-03 00:59 | XMS_ITS | Encounter Summary ---
Author Organization [facility] Address [address] [place] [address] Phone Care Team Providers Care Budget Director Name Role Phone Samuel Larry MD Primary Care Provider [phone] Reason for Visit * Reason Onset Date Comments Appointment Request 09/06/2023 Encounter Details Date Type Department Care Team (Late st Contact Info) Description 09/06/2023 Telephone [facility] [address] [place] [address] Samuel Larry MD [address] [place] [address] Appointment Request Social History Tobacco Use Types Packs/Day Years Used Date Smoking Tobacco: Never Smokeless Tobacco: Never Alcohol Use Standard Drinks/Week Comments Not Currently 0 (1 standard drink = 0.6 oz pur e alcohol) Comments No Sex and Gender Information Value Date Recorded Sex Assigned at Not on file Legal Sex Female 9:20 AM CLUB CONCIERGE Gender Identity Not on file Sexual Orientation Not on file documented as of this encounter Miscellaneous Notes * Telephone Encounter - Mukul Pierre - 09/10/2023 11:25 AM CST HTR Letter sent CONCIERGE * Telephone Encounter - Shawanda Alcantar RN - 09/10/2023 10:22 AM CST This is the third attempt to reach out to this patient and I have sent a marlene nashe message as well. Will send a htr letter. CONCIERGE * Telephone Encounter - Shawanda Alcantar RN - 09/07/2023 9:31 AM CST [facility] I have sent a Marlene tang message to the patient as well. CONCIERGE CONCIERGE * Telephone Encounter - Yodit Velasquez LPN - 09/06/2023 6:00 PM CST Left message to call office CONCIERGE * Telephone Encounter - Rody Jacobo RN - 09/06/2023 9:[address] Larry received message from ER provider inquiring if Dr. Larry would see patient. Per Dr. Larry, get her on the schedule for next week to follow up with me. Left message for patient to call back. CONCIERGE documented in this encounter Plan of Treatment Upcoming Encounters Date Type Department Care Team (Late st Contact Info) Description 05/06/2025 1:20 PM CDT Procedure Visit [facility] [address] [place] [address] Graeme Masters, [address] [place] [address] documented as of this encounter Visit Diagnoses Not on filedocumented in this encounter Additional Health Concerns Infection Onset Date Last Indicated Resolved Time Influenza 09/01/2023 09/01/2023 09/08/2023 10:0 3 PM CLUB CONCIERGE documented as of this encounter Care Teams Budget Director Relationship Specialty Start Date End Date Samuel Larry MD [address] [place] [address] PCP - General Adult Medicine 05/27/24 documented as of this encounter
--- OUTSIDE RECORDS SUMMARY | 2025-05-03 00:59 | XMS_ITS | Encounter Summary ---
Author Organization [facility] Address [address] [place] [address] Phone Care Team Providers Care Telephoto Installer Name Role Phone Samuel Larry MD Primary Care Provider [phone] Encounter Details Date Type Department Care Team (Late st Contact Info) Description 06/03/2024 Scanned Document [facility] [address] [place] [address] Graeme Masters DO [address] [place] [address] Social History Tobacco Use Types Packs/Day Years Used Date Smoking Tobacco: Never Smokeless Tobacco: Never Alcohol Use Standard Drinks/Week Comments Not Currently 0 (1 standard drink = 0.6 oz pur e alcohol) Comments No Sex and Gender Information Value Date Recorded Sex Assigned at Not on file 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 Gender Identity Not on file Sexual Orientation Not on file documented as of this encounter Plan of Treatment Upcoming Encounters Date Type Department Care Team (Late Contact Info) Description 05/06/2025 1:20 PM CDT Procedure Visit [facility] [address] [place] [address] Graeme Masters, DO [address] [place] [address] documented as of this encounter Visit Diagnoses Not on filedocumented in this encounter Additional Health Concerns Assessment Noted Time A Hypertension Plan of Care has been documented for the patient 05/27/2024 2:39 PM CDT documented as of this encounter Care Teams Telephoto Installer Relationship Specialty Start Date End Date Samuel Larry MD [address] [place] [address] PCP - General Adult Medicine 05/27/24 documented as of this encounter
--- OUTSIDE RECORDS SUMMARY | 2025-05-03 00:59 | XMS_ITS | Encounter Summary ---
Author Organization [facility] Address [address] [place] [address] Phone Care Team Providers Care Control Systems Developer Name Role Phone Rona San APRN, CNP Primary Care Provider + Smauel Larry MD Primary Care Provider [phone] Reason for Visit * Reason Comments Medication Refill Encounter Details Date Type Department Care Team (Late st Contact Info) Description 12/06/2023 Refill [facility] - Orthopaedics and Sports Medicine - [address] [place] [phone] Sara Faulkner PAC [address] [place] [address] [facility] [place] [address] Medication Refill Social History Tobacco Use Types Packs/Day Years Used Date Smoking Tobacco: Never Smokeless Tobacco: Never Alcohol Use Standard Drinks/Week Comments Not Currently 0 (1 standard drink = 0.6 oz pur e alcohol) Comments Unknown Sex and Gender Information Value Date Recorded Sex Assigned at Female 11/08/2023 7:51 AM CDT Legal Sex Female 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 Should be following up with pain management. * Telephone Encounter - Shelley Mooney RN - 12/06/2023 10:46 AM CDT Escribe request received for meloxicam. Shelley BARCENAS RN documented in this encounter Plan of Treatment Not on file documented as of this encounter Visit Diagnoses Not on filedocumented in this encounter Care Teams Control Systems Developer Relationship Specialty Start Date End Date Rona San APRN, LOGAN [address] [place] [address] PCP - General Certified Nurse Practitioner 08/28/22 06/02/24 Samuel Larry MD [address] [place] [address] PCP - General Internal Medicine 06/03/24 documented as of this encounter
--- OUTSIDE RECORDS SUMMARY | 2025-05-03 00:59 | XMS_ITS | Clinical Summary ---
Author Organization [facility] Address [address] [place] [address] Care Team Providers Care Staffing Recruiter Name Role Phone Unavailable Primary Care Provider Unavailabl e Allergies No known active allergies Medications HYDROcodone-acetami nophen (NORCO) 7.5-325 MG per tablet Take 1 tablet by mouth every 6 (six) hours if needed for Pain Every 4-6 hours Active ferrous sulfate 325 (65 Fe) MG tablet Take 1 tablet (325 mg) by mouth at bedtime Active multivitamin ( S) 27-0.8 MG tablet Take 1 tablet by mouth at bedtime Active dicyclomine (BENTYL) 20 MG tablet Take 1 tablet (20 mg) by mouth as needed for Other (stomach pain) Active omeprazole (PRILOSEC) 40 MG capsule Take 1 capsule (40 mg) by mouth as needed for Other (heartburn) Active promethazine (PHENERGAN) 12.5 MG tablet Take 1 tablet (12.5 mg) by mouth every 4 hours as needed for Nausea Active ondansetron (ZOFRAN ODT) 4 MG disintegrating tablet Take 1 tablet (4 mg) by mouth every 6 (six) hours if needed for Nausea Active SUMAtriptan (IMITREX) 100 MG tablet Take 0.5 tablets (50 mg) by mouth as needed for Migraine at onset of headache, repeat one time only after 2 hours, if needed Active ALPRAZolam (XANAX) 0.5 MG tablet Take 1 tablet (0.5 mg) by mouth 3 times daily as needed 2 Active valACYclovir (VALTREX) 500 MG tablet TAKE 1 TABLET BY MOUTH TWICE A DAY FOR 5 DAYS, THEN TAKE 1 TABLET DAILY 3 Active Active Problems Problem Noted Date Diagnosed Date Iron deficiency anemia 02/05/2023 Vaginal bleeding during 02/01/2023 ROBBIN (amniotic fluid index) borderline low 2022 Hypothyroidism 02/01/2023 Chronic leg pain 02/01/2023 Immunizations Immunization Administration Dates Next Due Tdap 02/02/2023 Social History Tobacco Use Types Packs/Day Years [...] place to sleep or slept in a care home (including now)? No 03/01/2023 Alcohol Use Answer [...] Orientation Straight 02/01/2023 2: 59 PM CDT Last Filed Vital Signs Vital Sign Reading Time Taken Comments Blood Pressure 136/84 01/15/2025 7:43 PM EDT Pulse 88 01/15/2025 7:43 PM EDT Temperature 35.9 C (96.7 F) 01/15/2025 7:43 PM EDT Respiratory Rate 20 01/15/2025 7:43 PM EDT Oxygen Saturation 100% 01/15/2025 7:43 PM EDT Inhaled Oxygen Concentration - - Weight 60.2 kg (132 lb 11.5 oz) 01/15/2025 7:43 PM EDT Height 175.3 cm (5' 9) 01/15/2025 7:43 PM EDT Body Mass Index 19.6 01/15/2025 7:43 PM EDT Plan of Treatment Health Maintenance Due Date Last Done Comments Hepatitis C Screening ages 18 to 79 once 1985 MMR VACCINES (1 of 1 - Standard series) 1986 DEPRESSION SCREENING 1997 HPV VACCINES (1 - 3-dose series) 2000 HEPATITIS B VACCINES (1 of 3 - 19+ 3-dose series) 2004 CERVICAL CANCER SCREENING 2006 Varicella Vaccine (2 of 2 - 13+ 2-dose series) 06/25/2014 05/28/2014 YEARLY WELLNESS EXAM 06/27/2017 06/27/2016 Influenza Vaccine 03/20/2025 05/27/2024, , 07/26/2022, Additional history exists COVID-19 Immunization ( season) 2025 06/21/2021, 01/10/2021 ADULT TETANUS 02/02/2033 02/02/2023, 06/20/2013 Zoster Vaccine (Recombinant Vaccine) (1 of 2) 12/12/2035 HIV Screening Completed 10/13/2022 HEPATITIS A VACCINES Aged Out No long er eligible based on patient's age to complete this topic HIB VACCINES Aged Out No longer eligi ble based on patient's age to complete this topic IPV VACCINES Aged Out No longer eligi ble based on patient's age to complete this topic MENINGOCOCCAL VACCINE Aged Out No brittney allen eligible based on patient's age to complete this topic Meningococcal B Vaccine Aged Out No l onger eligible based on patient's age to complete this topic Pneumococcal Vaccine: Peds to 50 & At-Risk Patients Aged Out No longer eligi ble based on patient's age to complete this topic ROTAVIRUS VACCINES Aged Out No longer eligible based on patient's age to complete this topic Goals Goal Patient Goal Type Associated Problems Recent Progress Patient-Stated? Author Reminders Care Plan OB Reminders No Mychartbguser Procedures Procedure Name Priority Date/Time Associated Diagnosis Comments HIV 1 AND 2 COMBO ANTIGEN/ANTIBODY Routine 10/13/2022 from Last 3 Months or Most Recently Relevant to Health Maintenance Results * HIV 1 AND 2 COMBO ANTIGEN/ANTIBODY (10/13/2022) HIV-1 and HIV-2 Antigen/Antibo dies Nonreactive Blood us Historical Provider IMMUNOLOGY ORDERABLES Fin al Result from Last 3 Months or Most Recently Relevant to Health Maintenance Additional Health Concerns Active Problems Noted Date Diagnosed Date OB Reminders 02/02/2023 Insurance OUT OF STATE MEDICAID GENERIC [facility]. [facility] [facility] Advance Directives * Full Code (Latest Code Status on File) Date Activated Date Inactivated Comments 02/01/2023 2:58 PM
--- OUTSIDE RECORDS SUMMARY | 2025-05-03 00:59 | XMS_ITS | Clinical Summary ---
Author Organization [facility] Address [address] [place] [id number] Phone Care Team Providers Care [employer] History Teacher Name Role Phone Samuel Larry MD Primary Care Provider [phone] Allergies No known active allergies Medications dicyclomine 20 mg tablet Take 20 mg by mouth Use as directed 09/15/19 22 Active valACYclovir (VALTREX) 500 mg tablet Take 500 mg by mouth every day 02/08/20 22 Active ALPRAZolam (XANAX) 0.5 mg tablet Take 0.5 mg by mouth 3 (three) times daily as needed for anxiety Active BRIELLYN 0.4-35 mg-mcg tablet Take 1 tablet by mouth every day 08/01/20 23 Active omeprazole (PRILOSEC) 40 mg delayed release capsule Take 40 mg by mouth every day Active rizatriptan (MAXALT) 10 mg tablet Take 10 mg by mouth as needed 08/31/19 24 Active ibuprofen 600 mg tabletIndications: Flank pain,Musculoskelet al pain Take 1 tablet (600 mg total) by mouth every 6 hours as needed for pain 20 tablet 09/06/19 24 Active ARIPiprazole (ABILIFY) 5 mg tablet Take 5 mg by mouth every day Active levothyroxine 150 mcg tablet Take 150 mcg by mouth every day 04/18/20 24 Active diclofenac (VOLTAREN) 75 mg enteric coated tablet Take 75 mg by mouth 2 (two) times daily 10/29/19 25 Active DULoxetine (CYMBALTA) 30 mg capsuleIndications :Degeneration of intervertebral disc of lumbar region with discogenic back pain,Chronic bilateral low back pain without sciatica Take 1 capsule (30 mg total) by mouth every day for 7 days, THEN 2 capsules (60 mg total) every day for 21 days. 49 capsule 10/31/19 25 Active Additional Information Patient not taking.Reported on 01/07/2025 DULoxetine (CYMBALTA) 60 mg capsuleIndications :Degeneration of intervertebral disc of lumbar region with discogenic back pain,Chronic bilateral low back pain without sciatica Take 1 capsule (60 mg total) by mouth every day 90 capsule 02/17/20 25 Active SUMAtriptan (IMITREX) 50 mg tabletIndications: History of migraine Take 1 tablet (50 mg total) by mouth as needed for migraine headache 9 tablet 2 03/20/20 25 Active cyclobenzaprine 5 mg tabletIndications: Acute midline thoracic back pain Take 1 tablet (5 mg total) by mouth 3 (three) times daily as needed (muscle spasm) 30 tablet 04/14/20 25 Active ondansetron 4 mg rapid dissolve tabletIndications: Nausea Place 1 tablet (4 mg total) under the tongue every 8 (eight) hours as needed for nausea 15 tablet 04/14/20 25 Active hydrOXYzine HCL 25 mg tablet Take 25 mg by mouth every 6 hours as needed 01/16/20 25 Active hydrocortisone (ANUSOL-HC) 2.5 % rectal cream Insert 1 applicator rectally 4 (four) times daily as needed 02/11/20 25 Active nitrofurantoin monohydrate/macroc rystals (MACROBID) 100 mg capsule Take 100 mg by mouth every 12 (twelve) hours 02/11/20 25 Active cyclobenzaprine 5 mg tabletIndications: Acute midline thoracic back pain Take 1 tablet (5 mg total) by mouth 3 (three) times daily as needed (muscle spasm) 30 tablet 3 11/13/19 25 025 Discontinu ed(Reorder ) cephalexin (KEFLEX) 500 mg capsuleIndications :Acute cystitis without hematuria Take 1 capsule (500 mg total) by mouth 4 (four) times daily for 5 days 20 capsule 04/14/20 25 025 phenazopyridine (PYRIDIUM) 200 mg tabletIndications: Acute cystitis without hematuria Take 1 tablet (200 mg total) by mouth 3 (three) times daily for 3 days 9 tablet 04/14/20 25 025 Active Problems Problem Noted Date Diagnosed Date Chronic bilateral low back pain without sciatica 10/30/2024 Pain management contract signed 07/30/2024 Overview (07/30/2024): Signed 07-30-2024. Moderate mixed bipolar I disorder 10/09/2023 Dyslipidemia 06/22/2023 Iron deficiency anemia 02/05/2023 Chronic pain of left ankle 02/01/2023 Atopic dermatitis 07/25/2022 Fatigue 02/09/2022 GERD (gastroesophageal reflux disease) Migraine 02/09/2022 Acquired hypothyroidism 11/14/2019 Degenerative disc disease, lumbar 03/30/2016 Anxiety and depression 06/22/2014 Overview (04/06/2023): Identified By: Yadira Gardner Last Assessment & Plan: Assessment: She clearly has [...] amitriptyline. She will be seen at the [facility] tomorrow for an intake but unclear when [...] she has used sparingly in the past. Irritable colon 05/21/2014 Overview (04/06/2023): Identified By: Yadira Gardner Resolved Problems Problem Noted Date Diagnosed Date Resolved Date Delivery by emergency section 04/06/2023 04/07/2023 RLQ abdominal pain 04/06/2023 Placental abruption in third trimester 04/06/2023 04/07/2023 Previous section 04/05/2023 ROBBIN (amniotic fluid index) borderline low 02/01/2023 05/27/2024 Fracture tibia/fibula, left, closed, initial encounter 08/27/2020 04/06/2023 Encounters Date Type Department Care Team Description 04/15/2025 1:00 PM CDT Office Visit [facility] Interventional Pain [address] [address] Graeme Masters, Sacroiliac joint dysfunction of both sides (Primary Dx); Myofascial muscle pain 04/14/2025 12:02 PM CDT - 04/14/2025 1:55 PM CDT Emergency [facility] Emergency Dept [address] [id number] Ryan Roberto MD General medical examination (Primary Dx); Acute cystitis without hematuria; Nausea Discharge Disposition: Discharged to Home or Self Care 04/13/2025 2:25 PM CDT Lab Only [facility] [address] [place] [address] Yung Phoenix MD Screening for STDs (sexually transmitted diseases) 04/13/[address] [address] Samuel Larry MD Refill Request 04/13/2025 Transcribe Orders Taran Richardson MD/Mynor Valle MD Screening for STDs (sexually transmitted diseases) (Primary Dx) 03/26/2025 1:40 PM CDT Lab Only [facility] [address] [place] [address] Yung Phoenix MD Dysuria 03/26/2025 Results Follow-Up [facility] [address] [place] [address] Samuel Larry MD 03/20/2025 Refill [facility] [address] [place] [address] Samuel Larry MD Refill Request 02/17/2025 12:49 PM CDT - 02/17/2025 11:59 PM CDT Hospital Encounter [facility] Radiology [facility] [address] [place] [address] Graeme Masters DO Sacroiliac joint dysfunction of both sides Discharge Disposition: Discharged to Home or Self Care 02/17/2025 Telephone [facility] Interventional Pain [facility] [address] [place] [address] Graeme Masters DO Follow-Up 02/14/2025 Telephone [facility] [address] [place] [address] Samuel Larry MD Refill Request from Last 3 Months Immunizations Immunization Administration Dates Next Due DTP 11/28/1990, 0,09/17/1986,1985,02/13/1986 HEP B - Engerix 0.5ml 01/19/2015, 015,06/04/2014,2013,03/21/2013 INFLUENZA SPLIT VIRUS TRIVAL ENT PF (Fluzone/Flulaval/Fluarix/Afluria PF) 05/27/2024,05/15/2016,06/10/2015,2013 Influenza (FLUARIX) vaccine 06/21/2021,1 ,05/02/2017,2013 Influenza (Flu Quad PF) 05/30/2023,07/26,09/28/2021,2019 Influenza (Fluzone Quad) 07/26/2022 Yookapq-Szwaf-Fnvdyim - MMR 06/04/2014, 1,09/27/1989 Measles-Rubeola 05/28/2014 Mumps 05/28/2014 Oral Polio (Orimune) 11/28/1990,09/27/18 90,09/17/1988,1985,02/13/1986 Polio Virus (IPOL) 11/28/1990, 0,09/17/1988,1986,04/10/1986,02/13/1986 Rubella 05/28/2014 SARS-CoV-2 (Pfizer Monovalen t COVID-19) 06/21/2021,01/10/2021 T-dap (ADACEL) 06/20/2013 T-dap (BOOSTRIX) 02/02/2023 TB-PPD 07/27/2016,07/27/2015,05/28/2014 Varicella (VARIVAX) 05/28/2014 Family History Medical History Relation Name Comments Alcohol/Drug Father Stroke Father Heart Maternal Grandfather Colon Cancer Maternal Grandmother Dementia Maternal Grandmother Diabetes Paternal Grandfather Emphysema Paternal Grandfather Throat Cancer Paternal Grandmother Relation Name Status Comments Father Maternal Grandfather Maternal Grandmother Paternal Grandfather Paternal Grandmother Social History Tobacco Use Types Packs/Day Years Used Date Smoking Tobacco: Never Smokeless Tobacco: Never Tobacco Cessation:Counseling Given: Not Answered Alcohol Use Standard Drinks/Week Comments Not Currently 0 (1 standard drink = 0.6 oz pur e alcohol) Comments No Sex and Gender Information Value Date Recorded Sex Assigned at Not on file Legal Sex Female 9:20 AM TEST LEAD APPLICATION TESTING Gender Identity Not on file Sexual Orientation Not on file Last Filed Vital Signs Vital Sign Reading Time Taken Comments Blood Pressure 124/84 04/15/2025 12:56 PM CDT Pulse 92 04/15/2025 12:56 PM CDT Temperature 36.6 C (97.9 F) 04/15/2025 12:56 PM CDT Respiratory Rate 20 04/14/2025 11:59 AM CDT Oxygen Saturation 100% 04/15/2025 12:56 PM CDT Inhaled Oxygen Concentration - - Weight 56.4 kg (124 lb 6.4 oz) 04/15/2025 12:56 PM CDT Height 172.7 cm (5' 8) 04/15/2025 12:56 PM CDT Body Mass Index 18.91 04/15/2025 12:56 PM CDT Plan of Treatment Upcoming Encounters Date Type Department Care Team (Late st Contact Info) Description 05/06/2025 1:20 PM CDT Procedure Visit [facility] [address] [place] [address] Graeme Masters, DO [address] [place] [address] Health Maintenance Due Date Last Done Comments Hepatitis B Vaccines (1 of 3 - 19+ 3-dose series) 2004 01/19/2015, 09/07/2014, 06/04/2014, Additional history exists Pap Smear 2006 Varicella Vaccines (2 of 2 - 13+ 2-dose series) 07/02/2014 05/28/2014 Cervical Cancer Screening 12/12/2015 HPV/Co-Testing 12/12/2015 COVID-19 Vaccine ( - 2024- season) 2025 06/21/2021, 01/10/2021 Influenza Vaccine (#1) 2025 4, 05/30/2023, 07/26/2022, Additional history exists Screening for Diabetes 04/14/2028 5, 11/25/2024, 10/09/2024, Additional history exists DTaP/Tdap/Td Vaccines (8 - Td or Tdap) 02/02/2033 02/02/2023, 06/20/2013, 11/28/1990, Additional history exists IPV Vaccines Completed 11/28/1990, 11/18, 09/27/1989, Additional history exists MMR Vaccines Completed 06/04/2014, 11/18, 09/27/1989 HIB Vaccines Aged Out No longer eligi ble based on patient's age to complete this topic HPV Vaccines Aged Out No longer eligi ble based on patient's age to complete this topic Hepatitis A Vaccines Aged Out No long er eligible based on patient's age to complete this topic Meningococcal B Vaccine Aged Out No l onger eligible based on patient's age to complete this topic Meningococcal Vaccine (ACWY) Aged Out No longer eligible based on patient's age to complete this topic Pneumococcal Vaccines Aged Out No brittney allen eligible based on patient's age to complete this topic Rotavirus Vaccines Aged Out No longer eligible based on patient's age to complete this topic Procedures Procedure Name Priority Date/Time Associated Diagnosis Comments CT ABDOMEN / PELVIS WITH CONTRAST STAT 04/14/2025 1:23 PM CDT BLOOD CULTURE, ROUTINE STAT 12:21 PM CDT BLOOD CULTURE, ROUTINE STAT 12:16 PM CDT BETA-HCG, QUANT. STAT 04/14/2025 12:1 6 PM CDT LACTIC ACID, PLASMA STAT 04/14/2025 1 2:16 PM CDT PROCALCITONIN STAT 04/14/2025 12:16 PM CDT COMPREHENSIVE METABOLIC PANEL STAT 04/14/2025 12:16 PM CDT CBC W/DIFF STAT 04/14/2025 12:16 PM CDT CHLAMYDIA AND GONORRHEA DNA, URINE Routine 04/13/2025 2:12 PM CDT Screening for STDs (sexually transmitted diseases) URINE CULTURE, REFLEXED Routine 04/13/2025 2:11 PM CDT UA WITH REFLEX CULTURE IF INDICATED Routine 04/13/2025 2:11 PM CDT Screening for STDs (sexually transmitted diseases) URINE CULTURE, REFLEXED Routine 03/26/2025 1:40 PM CDT UA WITH REFLEX CULTURE IF INDICATED Routine 03/26/2025 1:40 PM CDT Dysuria RAINE INJECTION BILATERAL SI JOINT Routine 02/17/2025 1:19 PM CDT Sacroiliac joint dysfunction of both sides from Last 3 Months Results * CT ABDOMEN/PELVIS WITH CONTRAST (04/14/2025 1:23 PM CDT) Anatomical Region Laterality Modality Abdomen, Pelvis N/A Computed Tomogra phy 04/14/2025 1:08 PM CDT Narrative 04/14/2025 1:48 PM CDT Accession Exam Completed Date/Time [id number] CT ABDOMEN/PELVIS WITH CONTRAST 04/14/2025 13:23 Requesting: AMY AVELAR CT of the Abdomen and Pelvis History: uti, recurrent/ complicated IV Contrast: 100 ml Isovue-300 Oral Contrast: None Comparison: November 25, 2024 Patient is scanned from lung bases through pubic symphysis. This examination may be evaluated with one or more artificial intelligence tools to aid in detection and reporting. FINDINGS: Lung bases/Lower Thorax: The lung bases are clear. Evidence for pectus excavatum and sternal tilt Liver/Gallbladder: The liver and gallbladder appear normal. Spleen: Normal Pancreas: Normal Adrenals/Kidneys: The kidneys and adrenals are normal. The renal collecting systems and ureters are normal. Bowel: No acute bowel abnormality Pelvic Structures: Normal Aorta and Vasculature: The aorta, vena cava and major vessels of the abdomen and pelvis demonstrate no acute abnormality Other: There is no ascites or lymphadenopathy identified. No other significant findings. IMPRESSION: 1.No acute findings in the abdomen or pelvis. 2.Evidence for pectus excavatum and sternal tilt. Electronically Signed and Authenticated by Girma Coleman MD 04/14/2025 13:48 Procedure Note Girma Coleman MD - 04/14/2025 Accession Exam CompletedDate/Time [id number] CT ABDOMEN/PELVIS WITH CONTRAST 3:23 Requesting: AMY AVELAR CT of the Abdomen and Pelvis History: uti, recurrent/ complicated IV Contrast: 100 ml Isovue-300 Oral Contrast: None Comparison: November 25, 2024 Patient is scanned from lung bases through pubic symphysis. This examination may be evaluated with one or more artificial intelligencetools to aid in detection and reporting. FINDINGS: Lung bases/Lower Thorax: The lung bases are clear. Evidence for pectusexcavatum and sternal tilt Liver/Gallbladder: The liver and gallbladder appear normal. Spleen: Normal Pancreas: Normal Adrenals/Kidneys: The kidneys and adrenals are normal. The renalcollecting systems and ureters are normal. Bowel: No acute bowel abnormality Pelvic Structures: Normal Aorta and Vasculature: The aorta, vena cava and major vessels of theabdomen and pelvis demonstrate no acute abnormality Other: There is no ascites or lymphadenopathy identified. No othersignificant findings. IMPRESSION: 1.No acute findings in the abdomen or pelvis. 2.Evidence for pectus excavatum and sternal tilt. Electronically Signed and Authenticated by Girma Coleman MD 04/14/2025 13:48 us Amy Santoyoorth HUNTING GUIDE CT WITH CONTRAST Fin al Result * BLOOD CULTURE, ROUTINE (04/14/2025 12:21 PM CDT) Only the most recent of2 resultswithin the time period is included. Pathologist [facility] BLOOD CULTURE, ROUTINE No growth 5 days. [facility] Blood PERIPHERAL BLOOD SPECIMEN / Unknown 04/14/2025 12:21 PM CDT 04/14/2025 12:21 PM CDT Narrative [facility] - 04/20/2025 7:06 AM CDT [facility] [address] [facility] [id number] Source: Blood -Peripheral Draw Site: [facility] HUNTING GUIDE MICROBIOLOGY Maria De Jesus l Result Performing Organization Address [facility] Co de Phone Number [facility] [address] [place] [address], [place] * BETA-HCG, QUANT. (04/14/2025 12:16 PM CDT) [facility] BETA-HCG, QUANT. SERUM <3 m[IU]/mL [facility] Comment: Age (years) Menopausal Status Reference Interval mIU/mL(IU/L) 18 - 41 pre-menopausal < 3 42-55 margaux-menopausal < 3 - 4.87 > 55 post-menopausal* < 3 - 7.60 Low level BHCG values greater than 25 mIU/mL may be indicative of early , but these results should always be evaluated in the context of the clinical situation; date of last menstrual period, pelvic examination, and other clinical findings. When borderline results are encountered, patient samples should be redrawn 48 hours later. * Post-menopausal is defined as female subjects who had not had a menstrual period for 12 months or more. [facility], [address] [place] [address] 04/14/2025 12:1 6 PM CDT 04/14/2025 12:16 PM CDT [facility] HUNTING GUIDE HEM/CHEM/IMMUN-BLOOD Final Result Performing Organization Address City/[facility] Co de Phone Number [facility] [address] [place] [address], [place] * PROCALCITONIN (04/14/2025 12:16 PM CDT) [facility] PROCALCITONIN VALUE 0.09 ng/mL [facility] PROCALCITONIN COMMENTS see below [facility] Comment: Procalcitonin levels less than 0.5 indicates systemic infection is unlikely but local bacterial infection is possible. Procalcitonin Value Interpretation < or = 0.5 ng/ml Low risk for progression to severe systemic infection. Systemic infection is not likely, local bacterial infection is possible. >0.5 and < or = Moderate risk for progression to severe 2.0 ng/ml systemic infection. Systemic infection is possible. >2 ng/ml High risk for progression to severe systemic infection. Systemic infection is likely unless other causes for elevated values are known. >10 ng/ml High likelihood of severe sepsis or septic shock. Correlate all values with clinical findings. Re-assessment of procalcitonin in 6-24 hours may be indicated. Reference ranges are applicable from 3 days after . This is a quantitative Immumoluminometric assay (JANE) to determine PROCALCITONIN levels in human plasma. [facility], [address] [place] [address] 04/14/2025 12:1 6 PM CDT 04/14/2025 12:16 PM CDT Amy Avelar HUNTING GUIDE HEM/CHEM/IMMUN-BLOOD Final Result Performing Organization Address [facility]/ZIP Co de Phone Number [facility] [address] [place] [address], [place] * CBC W/DIFF (04/14/2025 12:16 PM CDT) [facility] WBC 5.40 4.00 - 11.00 10*3/uL [facility] RBC 4.24 3.50 - 5.20 10*6/uL [facility] HGB 13.5 11.0 - 16.0 g/dL [facility] HCT 39.7 34.0 - 47.0 % [facility] MCV 93.6 80.0 - 100.0 fL [facility] MCH 31.8 26.0 - 33.0 pg [facility] MCHC 34.0 31.0 - 35.0 g/dL [facility] RDW 12.9 12.0 - 15.0 % [facility] RDW-SD 44.2 38.0 - 52.0 fL [facility] PLATELET 331 140 - 400 10*3/uL [facility] MPV 10.5 9.0 - 12.0 fL [facility] # NRBC 0.00 0.00 - 0.00 10*3/uL [facility] % NRBC 0.00 0.0 - 0.0 /100 WBC [facility] SEG 63.1 % [facility] LYMPHOCYTE 26.1 % [facility] MONOCYTE 9.1 % [facility] EOSINOPHIL 0.9 % [facility] BASOPHIL 0.4 % [facility] IMMATURE GRANULOCYTE 0.4 % [facility] ABSOLUTE NEUTR 3.41 1.60 - 7.70 10*3/uL [facility] ABSOLUTE LYMPH 1.41 1.00 - 4.90 10*3/uL [facility] ABSOLUTE MONO 0.49 0.00 - 1.10 10*3/uL [facility] ABSOLUTE EOS 0.05 0.00 - 0.50 10*3/uL [facility] ABSOLUTE BASO 0.02 0.00 - 0.20 10*3/uL [facility] ABSOLUTE IMMATURE GRANULOCYTE 0.02 0.00 - 0.09 10*3/uL [facility] Comment:[facility], [address] [place] [address] 04/14/2025 12:1 6 PM CDT 04/14/2025 12:16 PM CDT us Amy Avelar HUNTING GUIDE HEM/CHEM/IMMUN-BLOOD Final Result Performing Organization Address City/[facility]/ZIP Co de Phone Number [facility] [address] [place] [address], * (ABNORMAL) COMPREHENSIVE METABOLIC PANEL (04/14/2025 12:16 PM CDT) CALCIUM 8.8(L) 8.9 - 10.6 mg/dL [facility] GLUCOSE 76 74 - 100 mg/dL [facility] BUN 12 7 - 19 mg/dL [facility] CREATININE 0.73 0.55 - 1.02 mg/dL [facility] TOTAL PROTEIN 7.2 6.0 - 8.0 g/dL [facility] ALBUMIN 3.7 3.5 - 5.0 g/dL [facility] BILIRUBIN, TOTAL 0.2 0.2 - 1.2 mg/dL [facility] AST 20 9 - 43 U/L [facility] ALT 16 0 - 34 U/L [facility] ALKALINE PHOSPHATASE 42 40 - 150 U/L [facility] SODIUM 140 136 - 145 mmol/L [facility] POTASSIUM 3.5 3.5 - 5.1 mmol/L [facility] CHLORIDE 108(H) 98 - 107 mmol/L [facility] CO2 22.0 22.0 - 29.0 mmol/L [facility] GFR: CKD-EPI 2020 CREAT 107 arbitrary unit [facility] Comment: eGFR of 90 or higher is in the normal range eGFR of 60-89 may mean early-stage kidney disease eGFR of 15-59 may mean kidney disease eGFR below 15 may mean kidney failure NOTE: The GFR estimate is reported in ml/min/1.73 square meters. Effective 01/18/23 the reported GFR estimate is calculated using the CKD-EPI 2020 equation and is intended only for the assessment of chronic kidney disease. [facility], [address] [place] [address] 04/14/2025 12:1 6 PM CDT 04/14/2025 12:16 PM CDT us Amy Avelar HUNTING GUIDE HEM/CHEM/IMMUN-BLOOD Final Result [facility] [address] [place] [address], * LACTIC ACID, PLASMA (04/14/2025 12:16 PM CDT) LACTIC ACID, PLASMA 1.54 0.50 - 2.20 mmol/L [facility] Comment:[facility], [address] [place] [address] 04/14/2025 12:1 6 PM CDT 04/14/2025 12:16 PM CDT us Amy Avelar APRN HEM/CHEM/IMMUN-BLOOD Final Result Performing Organization Address [facility] Co de Phone Number [facility] [address] [place] [address], [place] * CHLAMYDIA AND GONORRHEA DNA, URINE (04/13/2025 2:12 PM CDT) [facility] CHLAMYDIA DNA, URINE NEGATIVE NEGATIVE [facility] Comment:Test Method: Amplifi ed DNA Probe GONORRHOEAE DNA, URINE NEGATIVE NEGATIVE [facility] Comment: Test Method: Amplified DNA Probe [facility], [address] [place] [id number] VOIDED URINE SPECIMEN / Unknown 04/13/2025 2:12 PM CDT 04/13/2025 7:32 PM CDT Narrative [facility] - 04/14/2025 10:28 AM CDT Called to this provider s office : () Tel: . RDOC CALL!RDOC us Mynor Meyers MD HEM/CHEM/[id number] Fi nal Result Performing Organization Address [facility]/ZIP Co de Phone Number [facility] [address] [place] [phone], [place] * (ABNORMAL) UA WITH REFLEX CULTURE IF INDICATED (04/13/2025 2:11 PM CDT) Only the most recent of2 resultswithin the time period is included. COLOR YELLOW COLORLESS-YE LLOW [facility] APPEARANCE CLEAR [facility] SP. GRAVITY 1.020 1.003 - 1.035 arbitrary unit [facility] PH 6.0 pH [facility] PROTEIN NEGATIVE NEGATIVE mg/dL [facility] GLUCOSE NEGATIVE NEGATIVE mg/dL [facility] KETONE NEGATIVE NEGATIVE mg/dL [facility] BILIRUBIN NEGATIVE NEGATIVE [facility] BLOOD NEGATIVE NEGATIVE [facility] NITRITE POSITIVE(A) NEGATIVE [facility] UROBILINOGEN 0.2 mg/dL [facility] LEUKOCYTE ESTERASE NEGATIVE NEGATIVE [facility] RBC-MANUAL EXAM 0-2 0-2,3-5 /HPF [facility] WBC-MANUAL EXAM 3-5 0-2,3-5 /HPF [facility] SQUAMOUS EPI-MANUAL EXAM FEW NONE-MODERAT E /LPF [facility] BACTERIA MANY(A) NONE-FEW [facility] Comment:[facility], [address] [place] [address] VOIDED URINE SPECIMEN / Unknown 04/13/2025 2:11 PM CDT 04/13/2025 2:11 PM CDT Narrative [facility] - 04/13/2025 2:23 PM CDT Called to this provider s office : () Tel: . RDOC CALL!RDOC us Rise Livier Meyers MD HEM/CHEM/IVUDO-MLI-MEAZB Fi nal Result Performing Organization Address City/State/[facility] Co de Phone Number [facility] [address] [place] [address], * (ABNORMAL) URINE CULTURE, REFLEXED (04/13/2025 2:11 PM CDT) Only the most recent of2 resultswithin the time period is included. REFLEXED CULTURE, URINE Greater than 100,000 cfu/ml E. coli recovered.(A) [facility] REFLEXED CULTURE, URINE Escherichia coli(A) [facility] VOIDED URINE SPECIMEN / Unknown 04/13/2025 2:11 PM CDT 04/13/2025 2:11 PM CDT Narrative [facility] - 04/15/2025 11:15 AM CDT [facility] [address] [facility] [phone] Source: Urine-Voided Site: Organism Antibiotic Method Susceptibility Escherichia coli Ampicillin SHABNAM 8: Sensitive Escherichia coli Ampicillin/Sulbactam SHABNAM <=2: Sensitive Escherichia coli Cefazolin SHABNAM <=4: Sensitive Escherichia coli Cefepime SHABNAM <=1: Sensitive Escherichia coli Ceftazidime SHABNAM <=1: Sensitive Escherichia coli Ceftriaxone SHABNAM <=1: Sensitive Escherichia coli Ciprofloxacin SHABNAM <=0.25: Sensitive Escherichia coli Ertapenem SHABNAM <=0.5: Sensitive Escherichia coli ESBL SHABNAM Neg: Negative Escherichia coli Cefoxitin SHABNAM <=4: Sensitive Escherichia coli Gentamicin SHABNAM <=1: Sensitive Escherichia coli Imipenem SHABNAM <=0.25: Sensitive Escherichia coli Levofloxacin SHABNAM <=0.12: Sensitive Escherichia coli Nitrofurantoin SHABNAM <=16: Sensitive Escherichia coli Piperacillin/Tazobactam SHABNAM <=4: Sensitive Escherichia coli Trimethoprim/Sulfa SHABNAM <=20: Sensitive us Mynor Meyers MD MICROBIOLOGY Final Resul t Performing Organization Address [facility] Co de Phone Number [facility] [address] [place] [id number], * RAINE INJECTION BILATERAL SI JOINT (02/17/2025 1:19 PM CDT) Narrative 02/17/2025 1:21 PM CDT Table formatting from the original result was not included. This report is for documentation purposes only and does not provide an interpretation of the performed imaging. RAINE INJECTION BILATERAL SI JOINT End Exam Questions Answers Comments Fluoro Time in min: 0 Fluoro Time in Sec: 7 Number of Images: 4 Students present: MARY Does this exam need a reading from an outside group like [employer] or [employer]? No Contrast Used (if any)- Graeme Hilton Masters DO C-ARM Final Re sult from Last 3 Months Insurance [employer] [facility] Advance Directives For more information, please contact: [phone] * Attempt CPR / Full Treatment (Latest Code Status on File) Date Activated Date Inactivated Comments 04/05/2023 4:03 PM 04/07/2023 12:37 PM * Attempt CPR / Full Treatment Date Activated Date Inactivated Comments 04/05/2023 1:53 PM 04/05/2023 4:03 PM Care Teams Church History Teacher Relationship Specialty Start Date End Date Samuel Larry MD [address] [place] [address] PCP - General Adult Medicine 05/27/24
--- OUTSIDE RECORDS SUMMARY | 2025-05-03 00:59 | XMS_ITS | Encounter Summary ---
Author Organization [facility] Address [address] [place] [address] Phone Care Team Providers Care Supervisor Feed Mill Name Role Phone Samuel Larry MD Primary Care Provider [phone] Reason for Visit * Reason Onset Date Comments Refill Request 06/19/2024 Encounter Details Date Type Department Care Team (Late st Contact Info) Description 06/19/2024 Refill [facility] Adult [facility] [address] [place] [address] Samuel Larry MD [address] [place] [address] Refill Request Social History Tobacco Use Types Packs/Day Years Used Date Smoking Tobacco: Never Smokeless Tobacco: Never Alcohol Use Standard Drinks/Week Comments Not Currently 0 (1 standard drink = 0.6 oz pur e alcohol) Comments No Sex and Gender Information Value Date Recorded Sex Assigned at Not on file 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 Thu CR[facility] Nurse (supporting Samuel Larry MD) 06/20/24 7:21 AM I was going to see if Dr. Larry could start the process of me getting a new MRI. I haven???t had one since 2016 or around there. I???ve been going to the chiropractor three times a week. The injections have helped my lower back, but I???m still having problems with my upper back essentially when Iwake up in the morning and when I go to sleep. I have another appointment for more injections in July. I???m hoping that after that I won???t have too much more pain the injections helped tremendously, but I???m still miserable sometimes. I???ve just been taking the medication as prescribed andit helps. Thank you Tramadol last filled 06-05 for a 14 day supply. * Telephone Encounter - Aleksandra Patel RN - 06/20/2024 7:22 AM CDT Request - please see [facility] response. * Telephone Encounter - Aleksandra Patel RN - 06/19/2024 10:02 AM CDT REQUEST- Medication request for pending med(s) does not meet protocol. cyclobenzaprine: Not on medication for 91 days consecutively tramadol : Medication is non-delegated Routing to office for review. Please note: Per policy [facility] staff does not check for prescriptions/refills at pharmacy. All applicable manual reviews have been completed. Requested Prescriptions Pending Prescriptions Disp Refills cyclobenzaprine 5 mg tablet 30 tablet 0 Sig: Take 1 tablet (5 mg total) by mouth 3 (three) times daily as needed (muscle spasms) Analgesics: Muscle Relaxants Passed - 06/19/2024 10:02 AM Passed - Valid encounter within last 6 months Recent Visits Date Type Provider Dept 05/27/24 Office Visit Samuel Larry MD [facility] Internal [facility] Showing recent visits within past 730 days and meeting all other requirements Future Appointments No visits were found meeting these conditions. Showing future appointments within next 180 days and meeting all other requirements traMADoL (ULTRAM) 50 mg tablet 56 tablet 0 Sig: Take 2 tablets (100 mg total) by mouth 2 (two) times daily for 14 days Non-Delegated - Analgesics: Opioid Agonists Failed - 06/19/2024 10:02 AM Failed - This refill cannot be delegated Associated protocol - [facility]/A * Telephone Encounter - Drea Whitfield - 06/19/2024 7:40 AM CDT No care due was identified. [employer] Embedded Care Due Messages. Reference number: [id number]. 06/19/2024 7:40:41 AM CDT documented in this encounter Plan of Treatment Upcoming Encounters Date Type Department Care Team (Late st Contact Info) Description 05/06/2025 1:20 PM CDT Procedure Visit [facility] Interventional [facility] [address] [place] [address] Graeme Masters DO [address] [place] [address] documented as of this encounter Visit Diagnoses Diagnosis Acute midline thoracic back pain documented in this encounter Additional Health Concerns Assessment Noted Time A Hypertension Plan of Care has been documented for the patient 05/27/2024 2:39 PM CDT documented as of this encounter Care Teams Supervisor Feed Mill Relationship Specialty Start Date End Date Samuel Larry MD [address] [place] [address] (work) PCP - General Adult Medicine 05/27/24 documented as of this encounter
--- OUTSIDE RECORDS SUMMARY | 2025-05-03 00:59 | XMS_ITS | Encounter Summary ---
Author Organization [facility] Address [address] [place] [address] Phone Care Team Providers Care Calendar Control Clerk Blood Bank Name Role Phone Samuel Larry MD Primary Care Provider [phone] Reason for Visit * Reason Comments Refill Request Encounter Details Date Type Department Care Team ([facility] Contact Info) Description 06/26/2024 Refill [facility] Adult Med [place] [address] [place] [address] Samuel Larry MD [address] [place] [address] Refill Request Social History Tobacco Use Types Packs/Day Years Used Date Smoking Tobacco: Never Smokeless Tobacco: Never Alcohol Use Standard Drinks/Week Comments Not Currently 0 (1 standard drink = 0.6 oz pur e alcohol) Comments No Sex and Gender Information Value Date Recorded Sex Assigned at Not on file 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 Reason: No diagnosis associated on previous order(s) Routing to office for review. Please note: Per policy [facility] staff does not check for prescriptions/refills at pharmacy. All applicable manual reviews have been completed. Requested Prescriptions Pending Prescriptions Disp Refills SUMAtriptan (IMITREX) 50 mg tablet [Pharmacy Med Name: SUMATRIPTAN SUCC 50 MG TABLET] 9 tablet 0 Sig: Take 1 tablet (50 mg total) by mouth as needed for migraine headache Neurology: Migraine Therapy - sumatriptan Passed - 06/26/2024 9:15 AM Passed - Valid encounter within last 12 months Recent Visits Date Type Provider Dept 05/27/24 Office Visit Samuel Larry MD [facility] Internal Medicine [facility] Showing recent visits within past 730 days and meeting all other requirements Future Appointments No visits were found meeting these conditions. Showing future appointments within next 180 days and meeting all other requirements Associated protocol - [facility]/A CITY PLANNING ANALYST * Telephone Encounter - Drea Whitfield - 06/26/2024 12:13 AM CST No care due was identified. [employer] [facility] Embedded Care Due Messages. Reference number: [id number]. 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 CITY PLANNING ANALYST documented in this encounter Plan of Treatment Upcoming Encounters Date Type Department Care Team (Late st Contact Info) Description 05/06/2025 1:20 PM CDT Procedure Visit [facility] [address] [place] [address] Graeme Masters, [address] [place] [address] documented as of this encounter Visit Diagnoses Diagnosis History of migraine- Primary Personal history of other disorders of nervous system and sense organs documented in this encounter Additional Health Concerns Assessment Noted Time A Hypertension Plan of Care has been documented for the patient 05/27/2024 2:39 PM CDT documented as of this encounter Care Teams Calendar Control Clerk Blood Bank Relationship Specialty Start Date End Date Samuel Larry MD [address] [place] [address] PCP - General Adult Medicine 05/27/24 documented as of this encounter
[2025-05-03 01:00] VITALS: PULSE 82; RESP 16; O2SAT 100
[2025-05-03] MEDS: SODIUM CHLORIDE 0.9% IV 1,000 ML 999 ML IV CONT (01:20)
--- NOTE | 2025-05-03 01:20 | ED.FEMALEGU ---
HPI - Female Genitourinary General Chief complaint: Urogenital-Female Stated complaint: kidney pain Time Seen by Provider: 05/03/25 00:42 History of Present Illness HPI Narrative: Patient is a 39-year-old female who presents emergency department this evening complaining of bilateral flank pain and foul-smelling urine. States that she has been on multiple antibiotics for the past 3 weeks for UTIs and pyelo. States that she recently finished to the last course a few days ago and was feeling great up until today when she started to feel some flank pain worse on the right side and she was concerned that her symptoms were returning. Otherwise denies any additional symptoms or concerns. Denies any recent falls or trauma. Related Data Allergies Allergy/AdvReac Type Severity Reaction Status Date / Time No Known Allergies Allergy Verified 05/02/25 20:28 Review of Systems Review of Systems: All systems are reviewed and are negative unless stated otherwise in the HPI. Exam Narrative: General: Alert, awake, afebrile, in no acute distress. HEENT: PERRL, no rhinorrhea, no post nasal drip, oropharynx clear. Neck: Trachea midline, no JVD, no lymphadenopathy. Cardiovascular: Regular rate and rhythm, no murmurs, rubs or gallops, no peripheral edema. Respiratory: Clear to auscultation bilaterally, no tachypnea, no wheezing, no rhonchi, no rubs, no respiratory distress. Abdomen: Soft, nontender, nondistended, no rebound, no guarding, no peritoneal signs. Musculoskeletal: No joint swelling or deformity, normal muscle tone. Skin: No rashes or petechia, no signs of infection. Psychiatric: Alert and oriented, normal behavior and judgment for situation. Neurological: Alert and oriented to person, place, and time. Follows all commands. No focal deficits, speech is clear and fluent. Course Vital Signs Vital signs: Vital Signs Temperature 97.8 F 05/02/25 20:24 Pulse Rate 84 05/02/25 20:24 Respiratory Rate 20 05/02/25 20:24 Blood Pressure 152/99 H 05/02/25 20:24 Pulse Oximetry 100 05/02/25 20:24 Oxygen Delivery Room Air 05/02/25 20:24 Temperature 97.8 F 05/02/25 20:24 Pulse Rate 79 05/03/25 00:49 Respiratory Rate 17 05/03/25 00:49 Blood Pressure 152/99 H 05/02/25 20:24 Pulse Oximetry 100 05/03/25 00:49 Oxygen Delivery Room Air 05/02/25 20:24 MDM - Female Genitourinary MDM Narrative Medical decision making narrative: The patient was evaluated by myself in the emergency department. History is obtained from patient who is an independent historian and physical exam was performed. External medical records were reviewed at this time. IV was established and pertinent tests were ordered. Patient was administered 1 L IV fluid bolus with normal saline 15 mg of IV Toradol for pain. Laboratory results obtained revealing no acute process. Urinalysis unremarkable. Imaging studies obtained included CT abdomen pelvis with IV contrast which was independently interpreted by me revealing no acute process, which is pending final radiology interpretation. Differential diagnosis considerations include pyelonephritis, kidney stones, musculoskeletal strain, gastritis, appendicitis, diverticulitis. Comorbidities impacting this visit include history of recurrent UTIs and pyelonephritis. I have evaluated and discussed social determinants of health with the patient that could potentially impact subsequent diagnosis and treatment plans. On repeat assessment of the patient, reevaluation revealed that the patient is doing well and is in no acute distress. Patient symptoms have improved since she arrived to our emergency department. Repeat vital signs were all reviewed and noted to be stable. Differential diagnosis and treatment plan were discussed with the patient at bedside. Patient agrees with discussion and after shared medical decision making agrees with discharge. All questions were answered to the patient's satisfaction. Patient will follow up with her PCP in 3-5 days. She was provided with Urology referral and instructed to fall set up a follow-up appointment. Patient was provided with strict return precautions and instructed to return to the emergency department if any new or worsening symptoms develop. The patient was discharged in stable condition. Lab Data 05/02/25 22:20 05/02/25 22:20 Labs: Lab Results 05/02/25 Range/Units 22:20 WBC 7.8 (4.5-10.0) K/mm3 RBC 3.59 L (4.2-5.4) M/mm3 Hgb 11.2 L (12.0-15.0) g/dL Hct 34.8 L (37.0-47.0) % MCV 96.9 (80-100) fl MCH 31.2 (26-34) pg MCHC 32.2 (32-36) g/dl RDW 13.2 (11.5-14.5) % Plt Count 310 (150-375) k/mm3 MPV 10.0 (7.4-10.4) fl Immature Gran % (Auto) 0.3 (0-0.5) % Neut % (Auto) 59.9 (45.5-73.1) % Lymph % (Auto) 32.9 (18.3-44.2) % Gray % (Auto) 5.4 (2.6-8.5) % Eos % (Auto) 1.2 (0-4.4) % Baso % (Auto) 0.3 (0.2-1.2) % Lymph # (Auto) 2.55 (0.9-3.2) K/mm3 Gray # (Auto) 0.4 (0.1-0.6) K/mm3 Eos # (Auto) 0.1 (0-0.3) K/mm3 Baso # (Auto) 0.0 (0.0-0.1) K/mm3 Abs Immat Gran (auto) 0.02 (0.00-0.031) K/mm3 Absolute Neuts (auto) 4.7 (1.3-6.7) K/mm3 Absolute Nucleated RBC 0.000 (0.0-0.012) K/mm3 Nucleated RBC % 0.0 (0.0-0.2) % Sodium 138 (137-145) mmol/L Potassium 3.4 (3.4-5.0) mmol/L Chloride 107 (98-107) mmol/L Carbon Dioxide 21 L (22-30) mmol/L Anion Gap 10 (4-12) mmol/L BUN 14 (7-17) mg/dL Creatinine 0.74 (0.7-1.0) mg/dL Estim Creat Clear Calc 85 ml/min Estimated GFR > 60 (59 - ) Glucose 94 (65-110) mg/dL Calcium 8.4 (8.4-10.2) mg/dL Total Bilirubin < 0.1 L (0.2-1.3) mg/dL AST 21 (14-36) U/L ALT 18 (6-35) U/L Alkaline Phosphatase 51 (38-126) U/L Total Protein 6.5 (6.3-8.2) g/dL Albumin 4.0 (3.5-5.1) g/dL Lipase 225 (23-300) U/L Urine Color Yellow (Yellow) Urine Appearance Clear (Clear) Urine pH 6.0 (5.0-9.0) Ur Specific [place] 1.032 (1.001-1.035) Urine Protein Negative (Negative) mg/dL Urine Glucose (UA) Negative (Negative) mg/dL Urine Ketones Trace H (Negative) mg/dL Ur Blood (Man) Negative (Negative) Urine Nitrate Negative (Negative) Urine Bilirubin Negative (Negative) Urine Urobilinogen 0.2 (<2.0) mg/dL Leukocyte Esterase Rfl Negative (Negative) MARIANNE/UL Urine Test Negative Discharge Plan Discharge Clinical Impression: Bilateral flank pain Patient Disposition: Home Condition: Improved Instructions: Antibiotic Form, Flank Pain (ED) Additional Instructions: Please follow-up with family doctor within the next 3-5 days. You also provided with Urology referral instructed to call set up a follow-up appointment. Return to ED if any new or worsening symptoms develop. Patient Language: Citizen Of [place] Follow-up/Referrals: Boogie Loepz MD [Physician, Urology] - 3 Days UNKNOWN,DOCTOR [Primary Care Provider] Time of Disposition: 01:25
[2025-05-03] MEDS: KETOROLAC 15 MG/ML VIAL (*BKC) IV PUSH (01:21)
[2025-05-03 01:42] VITALS: PULSE 78; RESP 17; O2SAT 93
[2025-05-03 01:45] VITALS: PULSE 75; RESP 20
[2025-05-03 01:48] VITALS: BP 158/89; PULSE 76; RESP 16; TEMP 36.5; O2SAT 98
== END 2025-05-03 01:50 | disposition home or self-care (01) ==
PROVIDERS: Emergency Provider Emergency Medicine
DX: R10.9 Unspecified abdominal pain (principal)
CPT/HCPCS: 36415; 74177; 80053; 81003; 81025; 83690; 85025; 96361; 96374; 99284; J1885; J7030; Q9967